=== PATIENT | male | born 1975 | race Two or more races ===

== ENCOUNTER 2021-09-16 09:08 | Outpatient (REF) | payer BC, SELFPAY ==
[2021-09-16 09:45] LABS: MANUAL DIFF FLAG NO
[2021-09-16 10:20] LABS: Basophils Percent Auto 0.8 % (0-2); Eosinophils Absolute Auto 0.1 X10*3/uL (0.0-0.4); Eosinophils Percent Auto 3.6 % (0-4); Hematocrit 46.1 % (42.0-52.0); Hemoglobin 15.6 g/dl (14.0-18.0); Imm Gran Abs Auto 0.01 X10*3/uL (0.00-0.03); Imm Gran Pct Auto 0.3 % (0.0-0.4); Lymphocytes Absolute Auto 1.3 X10*3/uL (1.2-4.9); Lymphocytes Percent Auto 36.2 % (20-40); Mean Corpuscular HGB Conc 33.8 g/dl (31.0-36.0); Mean Corpuscular Hemoglobin 28.8 pg (27.0-33.0); Mean Corpuscular Volume 85.2 fL (80.0-98.0); Mean Platelet Volume 11.9 fL (9.4-12.4); Monocytes Absolute Auto 0.3 X10*3/uL (0.1-1.2); Monocytes Percent Auto 7.5 % (2-11); Neutrophils Absolute Auto 1.9 x10*3/uL (2.0-8.3); Neutrophils Percent Auto 51.6 % (45-73); Platelet Count 160 X10*3/uL (160-400); Red Blood Count 5.41 X10*6/uL (4.60-5.80); Red Cell Distribution Width 12.2 % (11.0-16.0); White Blood Count 3.6 X10*3/uL (4.8-10.8)
[2021-09-16 10:40] LABS: Hemoglobin A1c % > 14.0 %
[2021-09-16 10:41] LABS: Alanine Aminotransferase 55 U/L (0-40); Albumin Level 4.4 g/dL (3.5-5.0); Alkaline Phosphatase 108 U/L (39-117); Anion Gap 14 (12-20); Aspartate Amino Transferase 28 U/L (5-37); Bilirubin Total 1.2 mg/dL (0.0-1.0); Blood Urea Nitrogen 11 mg/dL (9-16); Calcium 9.7 mg/dL (8.4-10.2); Carbon Dioxide 29 mmol/L (22-29); Chloride 101 mmol/L (96-108); Cholesterol 235 mg/dL; Estimated Glomerular Filt Rate > 60; HDL Cholesterol 37 mg/dL; LDL Cholesterol Calculated 152 mg/dl; Potassium 4.7 mmol/L (3.3-5.1); Sodium 139 mmol/L (135-145); Total Protein 7.4 g/dL (6.5-8.0); Triglycerides 231 mg/dL
[2021-09-16 10:53] LABS: Prostate Specific Antigen Scr 0.37 ng/mL (<0.05-4.0); TSH reflex Free T4 0.67 uIU/mL (0.32-4.0)
[2021-09-16 11:29] LABS: Glucose Fasting 390 mg/dL (60-99)
[2021-09-18 08:40] LABS: Folate 16.7 ng/mL (> or = 4.0); Vitamin B12 467 pg/mL (200-900)
[2021-09-21 19:26] LABS: Vitamin D 25-OH, D2 <4 ng/mL; Vitamin D 25-OH, D3 7 ng/mL; Vitamin D 25-OH, Total 7 ng/mL (30-100)
== END 2021-09-16 09:09 | disposition home or self-care (01) ==
LOC: HO.LAB 09:08
PROVIDERS: Visit Provider Nurse Practitioner Acute Care
DX: Z00.00 Encounter for general adult medical examination without abnormal findings (principal); Z12.9 Encounter for screening for malignant neoplasm, site unspecified
CPT/HCPCS: 36415; 80053; 80061; 82306; 82607; 82746; 83036; 84153; 84443; 85025

== ENCOUNTER → 2021-10-20 15:25 | Outpatient (BNVA) | payer BC, SELFPAY | PROVIDERS: Visit Provider Internal Medicine Endocrinology, Diabetes & Metabolism | DX: E11.9 Type 2 diabetes mellitus without complications (principal); Z79.84 Long term (current) use of oral hypoglycemic drugs | CPT/HCPCS: 82947 ==

== ENCOUNTER 2021-12-09 09:27 | Outpatient (REF) | payer BC, SELFPAY ==
[2021-12-09 11:29] LABS: Cholesterol 124 mg/dL; HDL Cholesterol 37 mg/dL; LDL Cholesterol Calculated 74 mg/dl; Triglycerides 66 mg/dL
[2021-12-09 11:35] LABS: Creatinine Urine 106.04 mg/dL; Microalbumin Urine < 5.0 mg/L
== END 2021-12-09 09:28 | disposition home or self-care (01) ==
LOC: HO.LAB 09:27
PROVIDERS: PCP Nurse Practitioner Acute Care; Visit Provider Internal Medicine Endocrinology, Diabetes & Metabolism
DX: E11.9 Type 2 diabetes mellitus without complications (principal)
CPT/HCPCS: 36415; 80061; 82043

== ENCOUNTER → 2022-01-23 15:19 | Outpatient (BNVA) | payer BC, SELFPAY | PROVIDERS: PCP Nurse Practitioner Acute Care; Visit Provider Internal Medicine Endocrinology, Diabetes & Metabolism | DX: E11.9 Type 2 diabetes mellitus without complications (principal) | CPT/HCPCS: 82947 ==

== ENCOUNTER → 2022-01-25 12:26 | Outpatient (BNVA) | payer BC, SELFPAY | PROVIDERS: PCP Nurse Practitioner Acute Care; Visit Provider Dietitian, Registered | DX: E11.9 Type 2 diabetes mellitus without complications (principal) | CPT/HCPCS: 97802 ==

== ENCOUNTER → 2022-03-22 13:24 | Outpatient (BNVA) | payer BC, SELFPAY | PROVIDERS: PCP Nurse Practitioner Family; Visit Provider Dietitian, Registered | DX: E11.9 Type 2 diabetes mellitus without complications (principal) | CPT/HCPCS: 97803 ==

== ENCOUNTER → 2022-04-26 14:59 | Outpatient (BNVA) | payer BC, SELFPAY | PROVIDERS: PCP Nurse Practitioner Family; Visit Provider Internal Medicine Endocrinology, Diabetes & Metabolism | DX: E11.9 Type 2 diabetes mellitus without complications (principal) | CPT/HCPCS: 82947; 83036 ==

== ENCOUNTER 2022-05-19 10:20 | Outpatient (REF) | payer BC, SELFPAY ==
[2022-05-19 10:54] LABS: Hematocrit 44.5 % (42.0-52.0); Hemoglobin 14.9 g/dl (14.0-18.0); Mean Corpuscular HGB Conc 33.5 g/dl (31.0-36.0); Mean Corpuscular Volume 86.7 fL (80.0-98.0); Platelet Count 146 X10*3/uL (160-400); Red Blood Count 5.13 X10*6/uL (4.60-5.80); Red Cell Distribution Width 12.1 % (11.0-16.0); White Blood Count 4.5 X10*3/uL (4.8-10.8)
[2022-05-19 11:59] LABS: Alanine Aminotransferase 28 U/L (0-40); Albumin Level 4.2 g/dL (3.5-5.0); Alkaline Phosphatase 62 U/L (39-117); Anion Gap 11 (12-20); Aspartate Amino Transferase 22 U/L (5-37); Bilirubin Total 0.8 mg/dL (0.0-1.0); Blood Urea Nitrogen 14 mg/dL (9-16); Calcium 9.2 mg/dL (8.4-10.2); Carbon Dioxide 28 mmol/L (22-29); Chloride 108 mmol/L (96-108); Cholesterol 128 mg/dL; Estimated Glomerular Filt Rate > 60; Glucose Random 147 mg/dL (60-115); HDL Cholesterol 32 mg/dL; LDL Cholesterol Calculated 84 mg/dl; Potassium 4.5 mmol/L (3.3-5.1); Sodium 142 mmol/L (135-145); Total Protein 6.9 g/dL (6.5-8.0); Triglycerides 61 mg/dL; Vitamin D 25-OH Total 19.9 ng/mL (>30)
== END 2022-05-19 10:21 | disposition home or self-care (01) ==
LOC: HO.LAB 10:20
PROVIDERS: PCP Nurse Practitioner Family; Visit Provider Nurse Practitioner Family
DX: E78.5 Hyperlipidemia, unspecified (principal); E11.9 Type 2 diabetes mellitus without complications; E55.9 Vitamin D deficiency, unspecified
CPT/HCPCS: 36415; 80053; 80061; 82306; 85027

== ENCOUNTER → 2022-07-31 15:04 | Outpatient (BNVA) | payer BC, SELFPAY | PROVIDERS: PCP Nurse Practitioner Family; Visit Provider Internal Medicine Endocrinology, Diabetes & Metabolism | DX: E11.9 Type 2 diabetes mellitus without complications (principal); Z79.84 Long term (current) use of oral hypoglycemic drugs | CPT/HCPCS: 82947; 83036 ==

== ENCOUNTER → 2022-08-08 13:59 | Outpatient (BNVA) | payer BC, SELFPAY | PROVIDERS: PCP Nurse Practitioner Family; Visit Provider Dietitian, Registered | DX: E11.9 Type 2 diabetes mellitus without complications (principal) | CPT/HCPCS: 97803 ==

== ENCOUNTER 2022-12-04 14:55 | Emergency (ER) | payer BC, SELFPAY ==
--- NOTE | ~2022-12-04 | US_ITS ---
EXAMINATION: US SCROTUM CLINICAL INFORMATION: Right testicle pain. COMPARISON: None available. TECHNIQUE: A sonogram of the scrotum was performed assessing das-scale appearance and color Doppler flow. Spectral Doppler analysis of the arterial and venous flow were performed in the testes bilaterally. FINDINGS: RIGHT: Right testicle measures 4.2 x 2.5 x 2.6 cm, volume 14 mL. No focal testicular parenchymal lesions are visualized. Spectral Doppler analysis of the arterial and venous flow is normal in the right testis. Right epididymal head is normal in size. 2 right epididymal head cysts largest measuring 3 x 4 x 3 mm. Right hydrocele. No right varicocele is seen. Right epididymal Doppler flow is normal. LEFT: Left testicle measures 3.9 x 2.2 x 2.9 cm, volume 12.8 mL. No focal testicular parenchymal lesions are visualized. Spectral Doppler analysis of the arterial and venous flow is normal in the left testis. Left epididymal head is normal in size. Small appendix epididymis. Small hydrocele. No left is seen. Left epididymal Doppler flow is normal. US/US scrotum doppler IMPRESSION: Normal-appearing testicles. Bilateral hydroceles, right greater than left. Small right epididymal head cysts.
--- NOTE | ~2022-12-04 | US_ITS ---
EXAMINATION: US SCROTUM CLINICAL INFORMATION: Right testicle pain. COMPARISON: None available. TECHNIQUE: A sonogram of the scrotum was performed assessing das-scale appearance and color Doppler flow. Spectral Doppler analysis of the arterial and venous flow were performed in the testes bilaterally. FINDINGS: RIGHT: Right testicle measures 4.2 x 2.5 x 2.6 cm, volume 14 mL. No focal testicular parenchymal lesions are visualized. Spectral Doppler analysis of the arterial and venous flow is normal in the right testis. Right epididymal head is normal in size. 2 right epididymal head cysts largest measuring 3 x 4 x 3 mm. Right hydrocele. No right varicocele is seen. Right epididymal Doppler flow is normal. LEFT: Left testicle measures 3.9 x 2.2 x 2.9 cm, volume 12.8 mL. No focal testicular parenchymal lesions are visualized. Spectral Doppler analysis of the arterial and venous flow is normal in the left testis. Left epididymal head is normal in size. Small appendix epididymis. Small hydrocele. No left is seen. Left epididymal Doppler flow is normal. US/US scrotum IMPRESSION: Normal-appearing testicles. Bilateral hydroceles, right greater than left. Small right epididymal head cysts.
--- NOTE | 2022-12-04 15:40 | ED.GENADULT ---
HPI - General Adult General Chief complaint: Urogenital-Male Stated complaint: Testicle pain Time Seen by Provider: 12/04/22 18:34 Source: patient Mode of arrival: ambulatory Limitations: no limitations History of Present Illness HPI narrative: 47 yo male with history of DM2, obesity, HLD who presents to the ER from Urgent Care for pain in the right testicular pain that is sharp and radiating into his abdomen. He states it started this morning, reports swelling, denies fevers, dysuria, n/v, and injury to the area. States that he took a step and felt pain. Pain 10/10 at the time. Has improved slightly. He states it is worse with standing. Denies concern for STI. No flank pain. MD complaint: right testicular pain Onset (ago): hour(s) Location: genitals Radiation: abdomen Severity: severe Severity scale (1-10): 10 Quality: aching Pain Consistency: colicky Relieving factors: none Exacerbating factors: other (standing) Associated symptoms: denies other symptoms Treatments prior to arrival: none Related Data Home Medications Medication Instructions Recorded Confirmed cholecalciferol (vitamin D3) 50 50 mcg PO DAILY 05/18/22 08/31/22 mcg (2,000 unit) tablet Previous Rx's Medication Instructions Recorded blood sugar diagnostic (FreeStyle #100 ea 09/18/21 Lite Strips) blood-glucose meter (FreeStyle #1 ea 09/18/21 Lite Meter kit) epinephrine 0.15 mg/0.3 mL 0.15 mg (0.3 mL) IM Q30M PRN 11/02/21 injection,auto-injector anaphylaxis #1 ea metformin 1,000 mg tablet 1,000 mg PO BID #180 tabs 11/02/21 lancets 28 gauge (FreeStyle #100 ea 12/25/21 Lancets) tirzepatide 5 mg/0.5 mL 5 mg (0.5 mL) subcut QWEEK #2 mL 04/26/22 subcutaneous pen injector (Rodger) atorvastatin 20 mg tablet 20 mg PO DAILY #30 tabs 10/30/22 naproxen 500 mg tablet 500 mg PO BID PRN pain #20 tabs 12/04/22 naproxen 500 mg tablet 500 mg PO BID PRN pain #20 tabs 12/04/22 Allergies Allergy/AdvReac Type Severity Reaction Status Date / Time No Known Allergies Allergy Verified 12/04/22 16:10 Review of Systems Review of Systems: Yes all other systems are reviewed and are negative [facility] Past Medical History Medical History Encounter to establish care History of severe allergic reaction Hyperlipidemia New onset type 2 diabetes mellitus Obesity (BMI 30-39.9) Polydipsia Polyuria Vitamin D deficiency Surgical History History of ankle surgery Family History Family History Other Family history of diabetes mellitus Social History Social History Household Members: Spouse and Family Household Members Other:: , 3 daughters, 1 grandaughter, step daughter boyriend Housing: House Alcohol intake: former Patient Tobacco Use Status: Former Tobacco user Quit Date: 2006 e-Cigarette/Vaping Use: Never Used Substance Use Type: Marijuana Advance Directives: No Advance Directives Information Provided: No service: No Current occupational status: employed Cognitive needs: No Hearing needs: No Vision needs: Yes (glasses) Physical Exam ED Vital Signs: Vital Signs - 24 hr 12/04/22 16:02 Temperature 97.7 F Pulse Rate 59 Respiratory Rate 18 Blood Pressure 141/72 H Pulse Oximetry 97 Oxygen Delivery Method Room Air BMI result Body Mass Index 35.4 Appearance: Alert. Oriented X3. No acute distress. HEENT: normal inspection CVS: Normal heart rate and rhythm. Pulses normal. Respiratory: No respiratory distress. Skin: Skin warm and dry. Normal skin color. Normal skin turgor. No rashes. : normal inspection, right testicle with posterior tenderness, no epididymal tenderness, no palpable masses. Extremities: normal inspection x4, no swelling Neuro: Oriented X 3. grossly normal, nonfocal Course Course Course Narrative: RME - 47 yo male with history of DM2, obesity, HLD who presents to the ER from Urgent Care for pain in the right testicular pain that is sharp and radiating into his abdomen. He states it started this morning, reports swelling, denies fevers, dysuria, n/v, and injury to the area. States that he took a step and felt pain. Pain 10/10. Plan: U/A, testicular U/S, CT/NG Medical Decision Making Medical Decision Making [facility] Narrative: 47 yo male presenting to the ER from urgent care for evaluation of right testicular pain and swelling that started today. No urinary symptoms. Minimal tenderness on exam, minimal swelling. US today showed normal flow, bilateral hydroceles, R>L. Small epididymal cysts on the right. No evidence of torsion, no UTI No CVA tenderness or RLQ tenderness on exam. UA without blood, count kidney stone. Will defer further imaging for now. Will start on empiric abx and NSAIDs. Stable for d/c home. Differential Diagnosis Differential Diagnoses: The differential diagnosis associated with the presentation includes testicular torsion, epididymitis, orchitis, UTI, stermatocele, hydrocele, kidney stones Lab Data [facility] Lab Attestation statement: I reviewed the patient's lab results. UA without infection or microscopic hematuria Labs: Lab Results 12/04/22 Range/Units 16:16 Urine Color Yellow Urine Appearance Clear Urine pH 5.5 (5.0-9.0) Ur Specific [place] 1.010 (1.005-1.025) Urine Protein Negative (Neg-Trace) mg/dL Urine Glucose (UA) Negative (Negative) mg/dL Urine Ketones Negative (Negative) mg/dL Urine Blood Negative (Negative) Urine Nitrite Negative (Negative) Ur Leukocyte Esterase Negative (Negative) Independent Interpretation I performed an independent interpretation of an: Ultrasound Interpretation: normal flow, agree with radiology read Radiology Impression Discussion of test interpretation with radiology: I have reviewed the radiologist's reading. Radiologist Impression: US/US scrotum doppler IMPRESSION: Normal-appearing testicles. Bilateral hydroceles, right greater than left. Small right epididymal head cysts. External Record Review External record reviewed: Office record Tests considered The following testing was considered but not selected: CT scan abd considered but not performed given normal UA Prescription Management I considered prescription management with: Pain Medication and Antibiotic Critical Care Time Critical Care Time Critical Care Time: No Discharge Plan Discharge Clinical Impression: Pain in right testicle Patient Disposition: Home, Self-Care Instructions: Hydrocele (ED), Testicle Pain (ED) Additional Instructions: Your ultrasound today showed benign fluid collections of the testicles. No evidence of acute infection Take the prescribed antibiotic to be on the safe side - complete the entire course Take the prescribed anti-inflammatory medication as needed for pain US/US scrotum doppler IMPRESSION: Normal-appearing testicles. Bilateral hydroceles, right greater than left. Small right epididymal head cysts. Prescriptions: New naproxen 500 mg tablet 500 mg PO BID PRN (Reason: pain) Qty: 20 0RF naproxen 500 mg tablet 500 mg PO BID PRN (Reason: pain) Qty: 20 0RF No Action (DME) FreeStyle Lite Strips Strip See Rx Instructions .Route Qty: 100 0RF Rx Instructions: Test once daily (DME) blood-glucose meter [FreeStyle Lite Meter] Kit See Rx Instructions .Route Qty: 1 0RF Rx Instructions: Test once daily (DME) lancets [FreeStyle Lancets] 28 gauge misc See Rx Instructions .Route Qty: 100 1RF Rx Instructions: Test once daily atorvastatin 20 mg tablet 20 mg PO DAILY Qty: 30 2RF metformin 1,000 mg tablet 1,000 mg PO BID Qty: 180 0RF epinephrine 0.15 mg/0.3 mL auto-injector 0.15 mg IM Q30M MDD one dose PRN (Reason: anaphylaxis) Qty: 1 1RF Rx Instructions: do not exceed 12 doses per 24 hrs cholecalciferol (vitamin D3) 50 mcg (2,000 unit) tablet 50 mcg PO DAILY Mounjaro 5 mg/0.5 mL pen injector 5 mg subcut QWEEK Qty: 2 5RF Referrals: Katherine Garcia FNP [Primary Care Provider] - Stand Alone Forms: Work/School Release Interventions: ED Discharge Assessment Last Done: 12/04/22 18:39 Discharge Date/Time: 12/04/22 18:40
[2022-12-04 16:02] VITALS: BP 141/72; PULSE 59; RESP 18; TEMP 36.5; O2SAT 97; BMI 35.4
[2022-12-04 16:28] LABS: Appearance Urine Clear; Color Urine Yellow; Glucose Urine UA Negative (Negative); Leukocyte Esterase Urine Negative (Negative); Nitrite Urine Negative (Negative); PH 5.5 (5.0-9.0); Urine Blood Negative (Negative); Urine Ketones Negative (Negative); Urine Protein Negative (Neg-Trace)
[2022-12-05 06:06] LABS: CT PCR NOT DETECTED (Not Detect.); NG PCR NOT DETECTED (Not Detect.)
== END 2022-12-04 18:40 | disposition home or self-care (01) ==
PROVIDERS: Physician Assistant; Emergency Provider Emergency Medicine; PCP Nurse Practitioner Family
DX: N50.811 Right testicular pain (principal); N43.3 Hydrocele, unspecified; N50.3 Cyst of epididymis; E11.9 Type 2 diabetes mellitus without complications; E78.5 Hyperlipidemia, unspecified; Z79.84 Long term (current) use of oral hypoglycemic drugs; Z79.899 Other long term (current) drug therapy
CPT/HCPCS: 0353U; 76870; 81003; 93975; 99282; 99284

== ENCOUNTER → 2022-12-06 15:00 | Outpatient (BNVA) | payer BC, SELFPAY | PROVIDERS: PCP Nurse Practitioner Family; Visit Provider Physician Assistant ==

== ENCOUNTER 2023-01-29 15:00 | Outpatient (AMB) | payer BC, SELFPAY ==
--- NOTE | 2023-01-29 15:02 | MHC.OFFVIS ---
Intake Vital Signs 01/29/23 15:06 Height 5 ft 8 in Weight 240 lb 11.916 oz BMI 36.6 BP 116/86 Blood Pressure Location Rt brachial Position Sitting Pulse 87 Pulse Source Pulse Oximeter Intake Visit Reasons: f/u Type 2 DM Intake Note: Patient present today to follow up on Type 2 Diabetes Mellitus. Last Diabetic Eye exam: 2021 Last Podiatry Visit: Does not see a cooperative extension agent Random Glucose: 116mg/dl HgA1C: DUE Identity Management Consultant Required: No Accompanied by: Self / Same As Patient Allergies No Known Allergies Allergy (Verified 12/06/22 15:13) Medication List - Last Reconciled 01/29/23 by Luis Armando Wilburn MD atorvastatin 20 mg PO DAILY bisacodyl (Dulcolax (bisacodyl)) 20 mg (4 x 5 mg) PO ONCE 1 day blood sugar diagnostic (FreeStyle Lite Strips) Test once daily blood-glucose meter (FreeStyle Lite Meter kit) Test once daily cholecalciferol (vitamin D3) 50 mcg PO DAILY epinephrine 0.15 mg (0.3 mL) IM Q30M PRN MDD one dose lancets (FreeStyle Lancets) Test once daily metformin 500 mg PO BID naproxen 500 mg PO BID PRN polyethylene glycol 3350 (Miralax) 238 grams PO ONCE 1 day tirzepatide (Mounjaro) 5 mg (0.5 mL) subcut QWEEK HPI HPI Comments History of Present Illness Details 47 YO M who is seen in consultation for T2DM at the request of PCP. Initially diagnosed with T2DM in 6 wks ago . Was initially started on treatment with metformin 1000 mg twice a day . Current regimen metformin 1000 mg BID. Mounjaro 5 mg Qwkly not taking . Unfortunately, patient did not bring glucometer or log book to follow-up visit Most recent A1C , 7.3 from prior14. Family history of T2DM in Paternal side Uncle, father . Has eyes checked yearly, last eye exam 2019 to be seen 12/06/21, denies retinopathy. Denies neuropathy, Denies nephropathy, Not on [LINDSAY/ARB]. Has HLD, Not on statin. Last LDL as measured on . Denies CAD. : Had diabetes education. [facility] Medical History Encounter to establish care History of severe allergic reaction Hyperlipidemia New onset type 2 diabetes mellitus Obesity (BMI 30-39.9) Polydipsia Polyuria Vitamin D deficiency Surgical History History of ankle surgery Family History Other Family history of diabetes mellitus Social History Household Members: Spouse and Family Household Members Other:: , 3 daughters, 1 grandaughter, step daughter boyriend Housing: House Alcohol intake: former Patient Tobacco Use Status: Former Tobacco user Quit Date: 2006 e-Cigarette/Vaping Use: Never Used Substance Use Type: Marijuana service: No Current occupational status: employed Cognitive needs: No Hearing needs: No Vision needs: Yes (glasses) Physical Exam Vital Signs: Last Vital Signs Pulse 87 01/29/23 15:06 BP 116/86 01/29/23 15:06 BMI result Body Mass Index 36.6 Absence of Cushingoid features. Absence of acromegalic features. Neck exam reveals nl size thyroid about 15 gms. No thyroid nodules palpable. No carotid bruits present. Lungs CTA. Heart S1 S2, Reg R/R. No M/R/ G. Skin exam reveals absence of vitiligo or acanthosis nigricans. Abdominal exam reveals Soft NT/ND with NA BS. No organomegaly present. Neck Other: . Extrem Other: Visual exam of foot performed. No ulcerations or open lesions. No onchomycosis, no callouses.Pulses 2 + distally Sensation intact to monofilament exam. Vibratory sensation sensed is intact with 128 Hz tuning fork Results AMB Hemoglobin A1c AMB Hemoglobin A1c 6.2 % Last Edit by CHARLES Hearn on 01/29/23 15:23 Results Reviewed Results Reviewed: 01/29/23 15:12 Glucose, Whole Blood Routine Laboratory Last Values Glucose (Clinic) 116 mg/dL (60-115) H 01/29/23 15:12 Hgb A1c (Clinic) 6.2 % (4.0-6.0) H 01/29/23 15:14 Assessment & Plan Assessment & Plan (1) New onset type 2 diabetes mellitus: Code(s): E11.9 - Type 2 diabetes mellitus without complications Plan: This is a 47-year-old male with a history of type 2 diabetes being treated with metformin with excellent glycemic control with no known microvascular or macrovascular complications Plan is to continue current treatment . If patient has difficulty tolerating the 5 mg dose of Mounjaro , dose can be reduced to 2.5 mg. At this point, patient can follow up with primary care provider and return to endocrinology of A1c deteriorates Orders: Orders AMB Hemoglobin A1c 01/29/23 E11.9 - Type 2 diabetes mellitus without complications Medications: Refilled tirzepatide (Mounjaro) 5 mg (0.5 mL) subcut QWEEK 2 mL 5RF Coding Level of Care Code Est Pt Level 4 (67857) Diagnoses New onset type 2 diabetes mellitus E11.9
[2023-01-29 15:06] VITALS: BP 116/86; PULSE 87; BMI 36.6
[2023-01-29 15:15] LABS: Glucose, Whole Blood 116 mg/dL (60-115)
== END 2023-01-29 15:44 | disposition home or self-care (01) ==
PROVIDERS: PCP Nurse Practitioner Family; Visit Provider Internal Medicine Endocrinology, Diabetes & Metabolism
DX: E11.9 Type 2 diabetes mellitus without complications (principal)
CPT/HCPCS: 99214

== ENCOUNTER → 2023-01-29 15:00 | Outpatient (BNVA) | payer BC, SELFPAY | PROVIDERS: Visit Provider Internal Medicine Endocrinology, Diabetes & Metabolism | DX: E11.9 Type 2 diabetes mellitus without complications (principal) | CPT/HCPCS: 82947; 83036 ==

== ENCOUNTER 2023-04-18 12:27 | Outpatient (AMB) | payer BC, SELFPAY ==
--- NOTE | 2023-04-18 12:38 | MHC.OFFVIS ---
Intake Vital Signs 04/18/23 12:41 Height 5 ft 8 in Weight 234 lb BMI 35.6 BP 103/57 L Blood Pressure Location Lt brachial Position Sitting Pulse 67 Intake Visit Reasons: would like to discuss cologaurd Intake Note: Patient to discuss Cologuard test. Patient denies any GI issues. Licensed Direct Entry Midwife Required: No Accompanied by: Self / Same As Patient Allergies No Known Allergies Allergy (Verified 04/18/23 12:36) HPI HPI Comments History of Present Illness Details 48-year-old male 30 minutes back in November of for colon screening consult He has no family hx- GI cancers- He has no issues Normal bowels Appetite is good 6 siblings-recently met- extended chat-very happy about No GI or general complete [facility] Medical History Encounter to establish care History of severe allergic reaction Hyperlipidemia New onset type 2 diabetes mellitus Obesity (BMI 30-39.9) Polydipsia Polyuria Vitamin D deficiency Surgical History History of ankle surgery Family History Other Family history of diabetes mellitus Social History Household Members: Spouse and Family Household Members Other:: , 3 daughters, 1 grandaughter, step daughter boyriend Housing: House Alcohol intake: former Patient Tobacco Use Status: Former Tobacco user Quit Date: 2006 e-Cigarette/Vaping Use: Never Used Substance Use Type: Marijuana service: No Current occupational status: employed Cognitive needs: No Hearing needs: No Vision needs: Yes (glasses) Review of Systems Const All systems reviewed & are unremarkable except as noted in HPI and below Card Denies chest pain and Denies dyspnea Resp Denies dyspnea GI Denies abdominal pain, Denies hematochezia, Denies constipation, Denies heartburn, Denies nausea and Denies vomiting Physical Exam Vital Signs: Last Vital Signs Pulse 67 04/18/23 12:41 BP 103/57 L 04/18/23 12:41 BMI result Body Mass Index 35.6 Const General: cooperative, healthy appearing, comfortable and no acute distress Orientation/consciousness: patient oriented x3 Limitations: no limitations Eyes Sclerae: sclerae normal Resp Effort & Inspection: normal respiratory effort and able to speak in complete sentences Skin General skin exam: no rashes or lesions noted Neuro General: patient oriented x3 Extrem General: Yes full ROM Psych Appearance: grossly normal and well kempt Mental Status: mental status grossly normal Speech and movement: Normal speech and movement present and Clear speech present Affect: normal affect Attitude: cooperative Thought content: Normal thought content present Insight: Good insight present (Psych) Judgement: Good judgement present (Psych) Assessment & Plan Assessment & Plan (1) Screening for colon cancer: Comment: Seen initially for colonoscopy consult however returns to discuss alternatives such as Cologuard Approximate 13% false-positive, however any positive would recommend standard colonoscopy Code(s): Z12.11 - Encounter for screening for malignant neoplasm of colon Plan cologuard Patient Instructions: Very pleasant, good spirit 48-year-old male seen initially for screening colonoscopy however referred to discuss alternatives. Cologuard discussed aware 13% false positives any positive result recommend standard colonoscopy. Request for test will be submitted to insurance for authorization After sample submitted he will call the office approximately 2 weeks for results Coding Level of Care Code Est Pt Level 3 (46796) Diagnoses Screening for colon cancer Z12.11 Time Spent (min) 30
[2023-04-18 12:41] VITALS: BP 103/57; PULSE 67; BMI 35.6
== END 2023-04-18 13:55 | disposition home or self-care (01) ==
PROVIDERS: PCP Nurse Practitioner Family; Visit Provider Physician Assistant
DX: R19.5 Other fecal abnormalities (principal)
CPT/HCPCS: 99213

== ENCOUNTER → 2023-04-18 12:27 | Outpatient (BNVA) | payer BC, SELFPAY | PROVIDERS: PCP Nurse Practitioner Family; Visit Provider Physician Assistant ==

== ENCOUNTER 2023-06-03 13:04 | Outpatient (AMB) | payer BC, SELFPAY ==
[2023-06-03 13:11] VITALS: BMI 35.6
--- NOTE | 2023-06-03 13:11 | MHC.AMNUTRGE ---
Intake VS Expanded 06/03/23 13:11 06/03/23 13:34 Height 5 ft 8 in 5 ft 8 in Weight 233 lb 14.567 oz 234 lb BMI 35.6 35.6 Intake Visit Reasons: DM Allergies No Known Allergies Allergy (Verified 04/18/23 12:36) HPI Nutrition Presentation Details Pt presents for MNT for T2DM Pt reports doing well, working on reducing portion sizes of starches and empty calorie foods. food frequency Including fish 0-1/wk fruits: 1-2/d vegetables : 1-2 servings , 2-3 times/wk fluids: water, milk, diet sodas physical activity: none additional to that at work - contemplating increasing KNM-Bibxjej-Gw.Jeor Equation Height 5 ft 8 in Weight 234 lb Resting Metabolic Rate 1908.68 Calculated Activity Level Mild Activity Calories Needed to Maintain Weight 2624.44 Most Recent Diabetes Results: No Data to Display [facility] Medical History Encounter to establish care History of severe allergic reaction Hyperlipidemia New onset type 2 diabetes mellitus Obesity (BMI 30-39.9) Polydipsia Polyuria Vitamin D deficiency Surgical History History of ankle surgery Family History Other Family history of diabetes mellitus Social History Household Members: Spouse and Family Household Members Other:: , 3 daughters, 1 grandaughter, step daughter boyriend Housing: House Alcohol intake: former Patient Tobacco Use Status: Former Tobacco user Quit Date: 2006 e-Cigarette/Vaping Use: Never Used Substance Use Type: Marijuana service: No Current occupational status: employed Cognitive needs: No Hearing needs: No Vision needs: Yes (glasses) Assessment & Plan Assessment & Plan (1) New onset type 2 diabetes mellitus: Code(s): E11.9 - Type 2 diabetes mellitus without complications Plan: wt: 106 kg Est kcal needs as per MSJ: 2600 (40% carb, 30% protein/fat) Est fluid needs as per 30 ml/d: 3180 Est prot per day as per 1 g/kg bw: 106 g Recommend fiber intake : 8-10 g per day and gradually increase to 25-28 g per day for women and 35-38 g for men or as tolerated Recommend sodium intake per day: less than 2000 mg Educated patient on: ( R = reviewed V = verbalizes understanding N/R = needs review N/A = not applicable Food sources of carbohydrate, adequate serving sizes and its role in various health conditions: R Differences between complex carbohydrates a simple carbohydrates, role of fiber in diet: R Differences between types of fats and role in diet (mono on saturated fat fatty acids, saturated fatty acids, trans fats): NR Food sources of sodium in salt and healthy modifications for heart health in kidney health: NR Vitamins and minerals: R V Healthy plate method concept: R V Physical activity: Benefits a precaution: R Hypoglycemia protocol (rule of 15): R Patient Instructions: Increase physical activity 30 minutes, 3 times/wk weight loss goal 10 lbs less by next follow up Coding Level of Care Code Nutr Indiv Subseq (20158) Diagnoses New onset type 2 diabetes mellitus E11.9 Time Spent (min) 30
[2023-06-12 13:33] VITALS: BMI 35.6
== END 2023-06-03 13:51 | disposition home or self-care (01) ==
PROVIDERS: PCP Nurse Practitioner Family; Visit Provider Dietitian, Registered
DX: E11.9 Type 2 diabetes mellitus without complications (principal)

== ENCOUNTER → 2023-06-03 13:04 | Outpatient (BNVA) | payer BC, SELFPAY | PROVIDERS: PCP Nurse Practitioner Family; Visit Provider Dietitian, Registered | DX: E11.9 Type 2 diabetes mellitus without complications (principal); Z71.3 Dietary counseling and surveillance | CPT/HCPCS: 97803 ==

== ENCOUNTER 2023-09-04 14:55 | Outpatient (AMB) | payer BC, SELFPAY ==
--- NOTE | 2023-09-04 15:00 | MHC.PC.OV ---
Vital Signs 09/04/23 15:01 Height 5 ft 8 in Weight 227 lb 8 oz BMI 34.6 BP 120/60 Blood Pressure Location Lt brachial Position Sitting Pulse 63 Pulse Source Pulse Oximeter Pulse Oximetry (%) 97 Oxygen Delivery Method Room Air Intake Visit Reasons: PE Intake Note: Patient is here today for a physical. Senior Lead Software Engineer Required: No Drywall Finisher Foreman: Not Required per policy Accompanied by: Self / Same As Patient Allergies metformin Allergy (Intermediate, Verified 09/06/23 07:12) Diarrhea Medication List - Last Reconciled 09/06/23 by Dre Oscar MD atorvastatin 20 mg PO DAILY bisacodyl (Dulcolax (bisacodyl)) 20 mg (4 x 5 mg) PO ONCE 1 day blood sugar diagnostic (FreeStyle Lite Strips) Test once daily blood-glucose meter (FreeStyle Lite Meter kit) Test once daily cholecalciferol (vitamin D3) 50 mcg PO DAILY epinephrine 0.15 mg (0.3 mL) IM Q30M PRN MDD one dose lancets (FreeStyle Lancets) Test once daily naproxen 500 mg PO BID PRN polyethylene glycol 3350 (Miralax) 238 grams PO ONCE 1 day tirzepatide (Mounjaro) 2.5 mg (0.5 mL) subcut QWEEK Tobacco use date assessed: 09/04/23 Dental Screening Dental Screen Date: 09/04/23 Did you have a dental visit in the last 12 months?: No Did you have a dental problem in the last 6 months where you did not have access to dental care?: No Was dental information given to patient?: No HPI PE HPI Details 48-year-old male presents to the office requesting a physical. I will be taking over his care as his primary care provider has left the practice. Patient has history of diabetes and it is controlled with injectable Mounjaro. [facility] Medical History History of severe allergic reaction Obesity (BMI 30-39.9) Vitamin D deficiency Hyperlipidemia New onset type 2 diabetes mellitus Polyuria Polydipsia Encounter to establish care Surgical History History of ankle surgery Family History Other Family history of diabetes mellitus Social History Household Members: Spouse and Family Household Members Other:: , 3 daughters, 1 grandaughter, step daughter boyrimarek Housing: House Alcohol intake: former Patient Tobacco Use Status: Former Tobacco user Quit Date: 2006 e-Cigarette/Vaping Use: Never Used Second Hand Smoke Exposure: Yes Substance Use Type: Marijuana service: No Current occupational status: employed Cognitive needs: No Hearing needs: No Vision needs: Yes (glasses) Questionnaire PHQ-9 Over the last 2 weeks, how often have you been bothered by any of the following problems? 1. Little interest or pleasure in doing things: not at all 2. Feeling down, depressed, or hopeless: not at all 3. Trouble falling or staying asleep, or sleeping too much: not at all 4. Feeling tired or having little energy: not at all 5. Poor appetite or overeating: not at all 6. Feeling bad about yourself - or that you are a failure or have let yourself or your family down: not at all 7. Trouble concentrating on things, such as reading the newspaper or watching television: not at all 8. Moving or speaking so slowly that other people could have noticed. Or the opposite - being so fidgety or restless that you have been moving around a lot more than usual: not at all 9. Thoughts that you would be better off or of hurting yourself in some way: not at all Total score: 0 Depression Screening Interpretation: Negative Depression Screening Done: Yes Source: Developed by Drs. Luis Armando White, Stefanie Leon, Toñito Bruno and colleagues, with an educational leeroy from [employer]. Thrive Questionnaire Date Thrive assessed: 09/04/23 I am a: Patient What is your living situation today?: I have a steady place to live Within the past 12 months, did the food you bought not last and you didn't have the money to get more?: Never true Within the past 12 months, did you worry whether your food would run out before you got money to buy more?: Never true Do you have trouble paying for medicines?: No Do you have trouble getting transportation to medical appointments?: No Do you have trouble paying your heating and electricity bill?: No Do you have trouble taking care of your child, family member or friend?: No Do you have trouble with day-to-day activities such as bathing, preparing meals, shopping, managing finances, etc.?: No Are you currently unemployed and looking for a job?: No Are you interested in more education?: No Currently or been in a relationship where the following occur: no concerns reported THRIVE Score: 0 AUDIT C Alcohol Use Questionnaire (AUDIT-C) 1. How often do you have a drink containing alcohol?: Never Total Score: 0 ANNIKA-7 AMB Questionnaire ANNIKA-7 Date ANNIKA - 7 assessed: 09/04/23 Feeling nervous, anxious, or on edge: 0 = Not at all Not being able to stop or control worryin = Not at all Worrying too much about different things: 0 = Not at all Trouble relaxin = Not at all Being so restless that it is hard to sit still: 0 = Not at all Becoming easily annoyed or irritable: 0 = Not at all Feeling afraid as if something awful might happen: 0 = Not at all Total ANNIKA-7 score (0-4 normal; 5-9 mild; 10-14 moderate; 15-21 severe): 0 Source: Developed by Drs. Luis Armando White, Stefanie Leon, Toñito Bruno and colleagues, with an educational leeroy from [employer]. Physical exam (Primary Care) Vital Signs: Last Vital Signs Pulse 63 09/04/23 15:01 BP 120/60 09/04/23 15:01 Pulse Ox 97 09/04/23 15:01 Oxygen Delivery Method Room Air 09/04/23 15:01 BMI result Body Mass Index 34.6 Tobacco/Smoking Status: Tobacco use Status Tobacco use date assessed 09/04/23 09/04/23 15:11 Patient Tobacco Use Status Former Tobacco user 09/04/23 15:11 e-Cigarette/Vaping Use Never Used 09/04/23 15:11 PHQ-9: PHQ-9 Score PHQ-9: Total score 0 09/04/23 15:11 Depression Screening Interpretation: Negative Thrive Assessment: Date of Thrive Assessment Date Thrive assessed 09/04/23 09/04/23 15:11 Currently or been in a relationship where the following occur: no concerns reported Const General: cooperative and healthy appearing Nutritional Appearance: well nourished Orientation/consciousness: patient oriented x3 Limitations: no limitations HENMT Head: Yes normal to inspection Eyes General: appearance normal, both eyes and all related structures Neck Neck: Yes normal visual inspection Chest Chest palpation & inspection: normal palpation of entire chest wall Resp Effort & Inspection: normal respiratory effort Neuro General: patient oriented x3 Results AMB Hemoglobin A1c AMB Hemoglobin A1c 6.2 % Last Edit by CHARLES Mcwilliams on 09/04/23 15:12 Results Reviewed Results Reviewed: Laboratory Last Values Hgb A1c (Clinic) 6.2 % (4.0-6.0) H 09/04/23 15:00 Assessment and Plan Assessment & Plan (1) New onset type 2 diabetes mellitus: Code(s): E11.9 - Type 2 diabetes mellitus without complications (2) Annual physical exam: Code(s): Z00.00 - Encounter for general adult medical examination without abnormal findings Plan: Blood work has been ordered. Continue current medications. Orders: Orders Lipid Panel 09/04/23 E11.9 - Type 2 diabetes mellitus without complications Basic Metabolic Panel 09/04/23 E11.9 - Type 2 diabetes mellitus without complications UA and rflx microscopic 09/04/23 E11.9 - Type 2 diabetes mellitus without complications AMB Hemoglobin A1c 09/04/23 E11.9 - Type 2 diabetes mellitus without complications Liver Panel 09/04/23 E11.9 - Type 2 diabetes mellitus without complications Complete Blood Count no Diff 09/04/23 E11.9 - Type 2 diabetes mellitus without complications Thyroid Stimulating Hormone 09/04/23 E11.9 - Type 2 diabetes mellitus without complications Microalbumin, Random (w Creat) 09/04/23 E11.9 - Type 2 diabetes mellitus without complications Coding Level of Care Code Est Pt Prev Care 40-64y(35853) Diagnoses New onset type 2 diabetes mellitus E11.9 Annual physical exam Z00.00
[2023-09-04 15:01] VITALS: BP 120/60; PULSE 63; O2SAT 97; BMI 34.6
== END 2023-09-04 15:53 | disposition home or self-care (01) ==
PROVIDERS: PCP Internal Medicine; Visit Provider Internal Medicine
DX: E11.9 Type 2 diabetes mellitus without complications (principal)
CPT/HCPCS: 83036; 99396

== ENCOUNTER 2023-10-12 08:08 | Outpatient (REF) | payer BC, SELFPAY ==
[2023-10-12 08:56] LABS: Hematocrit 45.8 % (42.0-52.0); Hemoglobin 15.7 g/dl (14.0-18.0); Mean Corpuscular HGB Conc 34.3 g/dl (31.0-36.0); Mean Corpuscular Hemoglobin 29.8 pg (27.0-33.0); Mean Corpuscular Volume 87.1 fL (80.0-98.0); Mean Platelet Volume 10.8 fL (9.4-12.4); Platelet Count 133 X10*3/uL (160-400); Red Blood Count 5.26 X10*6/uL (4.60-5.80); Red Cell Distribution Width 12.3 % (11.0-16.0); White Blood Count 4.3 X10*3/uL (4.8-10.8)
[2023-10-12 09:39] LABS: Alanine Aminotransferase 21 U/L (0-40); Albumin Level 4.4 g/dL (3.5-5.0); Alkaline Phosphatase 55 U/L (39-117); Anion Gap 10 (12-20); Aspartate Amino Transferase 20 U/L (5-37); Bilirubin Direct 0.3 mg/dL (0.0-0.5); Bilirubin Total 0.9 mg/dL (0.0-1.0); Blood Urea Nitrogen 16 mg/dL (9-16); Calcium 9.5 mg/dL (8.4-10.2); Carbon Dioxide 30 mmol/L (22-29); Chloride 105 mmol/L (96-108); Estimated Glomerular Filt Rate > 60; Glucose Random 125 mg/dL (60-115); Potassium 4.8 mmol/L (3.3-5.1); Sodium 140 mmol/L (135-145); Total Protein 7.2 g/dL (6.5-8.0)
[2023-10-12 09:55] LABS: Thyroid Stimulating Hormone 0.79 uIU/mL (0.32-4.0)
== END 2023-10-12 08:09 | disposition home or self-care (01) ==
LOC: HO.LAB 08:08
PROVIDERS: PCP Internal Medicine; Visit Provider Internal Medicine
DX: E11.9 Type 2 diabetes mellitus without complications (principal)
CPT/HCPCS: 36415; 80048; 80076; 84443; 85027

== ENCOUNTER 2023-11-05 15:38 | Outpatient (AMB) | payer BC, SELFPAY ==
--- NOTE | 2023-11-05 15:40 | MHC.PC.OV ---
Vital Signs 11/05/23 15:41 Height 5 ft 8 in Weight 220 lb 4 oz BMI 33.5 BP 100/60 Blood Pressure Location Rt brachial Position Sitting Pulse 65 Pulse Source Pulse Oximeter Pulse Oximetry (%) 95 Oxygen Delivery Method Room Air Intake Visit Reasons: stomach issues wants forms completed Intake Note: Patient is here to follow up on stomach issues. Green Marketing Specialist Required: No Agriculture Professor: Not Required per policy Accompanied by: Self / Same As Patient Allergies metformin Allergy (Intermediate, Verified 11/05/23 16:37) Diarrhea Medication List - Last Reconciled 11/05/23 by Dre Oscar MD atorvastatin 20 mg PO DAILY blood sugar diagnostic (FreeStyle Lite Strips) Test once daily blood-glucose meter (FreeStyle Lite Meter kit) Test once daily cholecalciferol (vitamin D3) 50 mcg PO DAILY epinephrine 0.15 mg (0.3 mL) IM Q30M PRN MDD one dose lancets (FreeStyle Lancets) Test once daily tirzepatide (Mounjaro) 2.5 mg (0.5 mL) subcut QWEEK Tobacco use date assessed: 11/05/23 Dental Screening Dental Screen Date: 09/04/23 HPI stomach issues wants forms completed HPI Details 48 yr old male presents to the office to discuss his medical condition. Patient reports he is experiencing anxiety symptoms. 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 Tough job conditions. Good interpersonal relations with . Compliant with medications [facility] Medical History History of severe allergic reaction Obesity (BMI 30-39.9) Vitamin D deficiency Hyperlipidemia New onset type 2 diabetes mellitus Polyuria Polydipsia Encounter to establish care Surgical History History of ankle surgery Family History Other Family history of diabetes mellitus Social History Household Members: Spouse and Family Household Members Other:: , 3 daughters, 1 grandaughter, step daughter boyriend Housing: House Alcohol intake: former Patient Tobacco Use Status: Former Tobacco user Quit Date: 2006 e-Cigarette/Vaping Use: Never Used Second Hand Smoke Exposure: Yes Substance Use Type: Marijuana service: No Current occupational status: employed Cognitive needs: No Hearing needs: No Vision needs: Yes (glasses) Questionnaire Thrive Questionnaire Date Thrive assessed: 09/04/23 ANNIKA-7 AMB Questionnaire ANNIKA-7 Date ANNIKA - 7 assessed: 09/04/23 Source: Developed by Drs. Luis Armando White, Stefanie Leon, Toñito Bruno and colleagues, with an educational leeroy from [employer]. Physical exam (Primary Care) Vital Signs: Last Vital Signs Pulse 65 11/05/23 15:41 BP 100/60 11/05/23 15:41 Pulse Ox 95 11/05/23 15:41 Oxygen Delivery Method Room Air 11/05/23 15:41 BMI result Body Mass Index 33.5 Tobacco/Smoking Status: Tobacco use Status Tobacco use date assessed 11/05/23 11/05/23 15:56 Patient Tobacco Use Status Former Tobacco user 11/05/23 15:56 e-Cigarette/Vaping Use Never Used 11/05/23 15:56 Thrive Assessment: Date of Thrive Assessment Date Thrive assessed 09/04/23 11/05/23 15:56 Const General: cooperative and healthy appearing Nutritional Appearance: well nourished Orientation/consciousness: patient oriented x3 Limitations: no limitations HENMT Head: Yes normal to inspection Eyes General: appearance normal, both eyes and all related structures Neck Neck: Yes normal visual inspection Chest Chest palpation & inspection: normal palpation of entire chest wall Resp Effort & Inspection: normal respiratory effort Neuro General: patient oriented x3 Assessment and Plan Assessment & Plan (1) Generalized anxiety disorder: Code(s): F41.1 - Generalized anxiety disorder Plan: Agreed to fill FMLA form. No medications are needed currently. Patient was offered therapy, he will let me know his decision. Coding Level of Care Code Est Pt Level 3 (41643) Diagnoses Generalized anxiety disorder F41.1
[2023-11-05 15:41] VITALS: BP 100/60; PULSE 65; O2SAT 95; BMI 33.5
== END 2023-11-05 16:42 | disposition home or self-care (01) ==
PROVIDERS: PCP Internal Medicine; Visit Provider Internal Medicine
DX: F41.1 Generalized anxiety disorder (principal)
CPT/HCPCS: 99213

== ENCOUNTER 2023-11-12 14:27 | Outpatient (AMB) | payer BC, SELFPAY ==
[2023-11-12 14:30] VITALS: BMI 33.6
--- NOTE | 2023-11-12 14:30 | A.OFFVIS_ITS ---
VS Expanded 11/12/23 14:30 Height 5 ft 8 in Weight 220 lb 14.451 oz BMI 33.6 Intake Visit Reasons: T2DM/ CONFIRMED Allergies metformin Allergy (Intermediate, Verified 11/15/23 10:20) Diarrhea Nutrition Presentation Details: Pt presents for MNT f/u for T2DM Pt reports working on keeping physically active 3 times a week at least 30 minutes and working on diet modifications , getting family members involved. Pr reports feeling well, motivated, no concerns expressed at this time. BS Monitoring Most Recent Diabetes Results: Creatinine 0.87 mg/dL (0.5-1.4) 10/12/23 Blood Urea Nitrogen 16 mg/dL (9-16) 10/12/23 Sodium 140 mmol/L (135-145) 10/12/23 Potassium 4.8 mmol/L (3.3-5.1) 10/12/23 Chloride 105 mmol/L (96-108) 10/12/23 Carbon Dioxide 30 mmol/L (22-29) H 10/12/23 Calcium 9.5 mg/dL (8.4-10.2) 10/12/23 AST 20 U/L (5-37) 10/12/23 ALT 21 U/L (0-40) 10/12/23 Total Protein 7.2 g/dL (6.5-8.0) 10/12/23 Albumin 4.4 g/dL (3.5-5.0) 10/12/23 [facility] Medical History History of severe allergic reaction Obesity (BMI 30-39.9) Vitamin D deficiency Hyperlipidemia New onset type 2 diabetes mellitus Polyuria Polydipsia Encounter to establish care Surgical History History of ankle surgery Family History Other Family history of diabetes mellitus Social History Household Members: Spouse and Family Household Members Other:: , 3 daughters, 1 grandaughter, step daughter boyriend Housing: House Alcohol intake: former Patient Tobacco Use Status: Former Tobacco user Quit Date: 2006 e-Cigarette/Vaping Use: Never Used Second Hand Smoke Exposure: Yes Substance Use Type: Marijuana service: No Current occupational status: employed Cognitive needs: No Hearing needs: No Vision needs: Yes (glasses) Assessment & Plan Assessment & Plan (1) New onset type 2 diabetes mellitus: Code(s): E11.9 - Type 2 diabetes mellitus without complications Category: Medical Plan: wt: 106 kg , 100kg ( 10/2023) Est kcal needs as per MSJ: 2600 (40% carb, 30% protein/fat) Est fluid needs as per 30 ml/d: 3180 Est prot per day as per 1 g/kg bw: 106 g Recommend fiber intake : 8-10 g per day and gradually increase to 25-28 g per day for women and 35-38 g for men or as tolerated Recommend sodium intake per day: less than 2000 mg Educated patient on: ( R = reviewed V = verbalizes understanding N/R = needs review N/A = not applicable * Food sources of carbohydrate, adequate serving sizes and its role in various health conditions: R * Differences between complex carbohydrates a simple carbohydrates, role of fiber in diet: R * Differences between types of fats and role in diet (mono on saturated fat fatty acids, saturated fatty acids, trans fats): NR * Food sources of sodium in salt and healthy modifications for heart health in kidney health: R * Vitamins and minerals: R V * Healthy plate method concept: R V * Physical activity: Benefits a precaution: R * Hypoglycemia protocol (rule of 15): R * Patient Instructions: Continue working on following healthy plate method Keep hydrated drinking water with meals be mindful of salt in diet (pastries/ seasoning salts) work on reducing salt intake , choose fruit in place of pastries at least 2 times a day Coding Level of Care Code Nutr Indiv Subseq (97929) Diagnoses New onset type 2 diabetes mellitus E11.9 Time Spent (min) 30
== END 2023-11-12 15:01 | disposition home or self-care (01) ==
PROVIDERS: PCP Nurse Practitioner Family; Visit Provider Dietitian, Registered
DX: E11.9 Type 2 diabetes mellitus without complications (principal)

== ENCOUNTER → 2023-11-12 14:27 | Outpatient (BNVA) | payer BC, SELFPAY | PROVIDERS: PCP Nurse Practitioner Family; Visit Provider Dietitian, Registered | DX: E11.9 Type 2 diabetes mellitus without complications (principal); Z71.3 Dietary counseling and surveillance | CPT/HCPCS: 97803 ==

== ENCOUNTER 2023-11-13 10:09 | Outpatient (AMB) | payer BC, SELFPAY ==
--- NOTE | 2023-11-13 10:13 | MHC.PC.OV ---
Vital Signs 11/13/23 10:14 Height 5 ft 8 in Weight 221 lb 8 oz BMI 33.7 BP 110/66 Blood Pressure Location Lt brachial Position Sitting Pulse 65 Pulse Source Pulse Oximeter Pulse Oximetry (%) 95 Oxygen Delivery Method Room Air Intake Visit Reasons: throwing up, abdominal pain Intake Note: Patient is here to follow up on throwing up, chills, sweating and abdominal pain radiating down to groin area since 11/12/23. Drone Operator Required: No Raw Stock Machine Loader: Not Required per policy Accompanied by: Self / Same As Patient Allergies metformin Allergy (Intermediate, Verified 11/15/23 10:20) Diarrhea Tobacco use date assessed: 11/13/23 Dental Screening Dental Screen Date: 09/04/23 HPI throwing up, abdominal pain HPI Details 48 yr old male presents for a sick visit. Woke up a few days ago with diarrhea and stomach discomfirt. His had similiar symptoms. Could not go to work and needs a note. Blood sugars are in range. Symptoms are improving and he now only has stomach discomfirt. [facility] Medical History History of severe allergic reaction Obesity (BMI 30-39.9) Vitamin D deficiency Hyperlipidemia New onset type 2 diabetes mellitus Polyuria Polydipsia Encounter to establish care Surgical History History of ankle surgery Family History Other Family history of diabetes mellitus Social History Household Members: Spouse and Family Household Members Other:: , 3 daughters, 1 grandaughter, step daughter boyriend Housing: House Alcohol intake: former Patient Tobacco Use Status: Former Tobacco user Quit Date: 2006 e-Cigarette/Vaping Use: Never Used Second Hand Smoke Exposure: Yes Substance Use Type: Marijuana service: No Current occupational status: employed Cognitive needs: No Hearing needs: No Vision needs: Yes (glasses) Questionnaire Thrive Questionnaire Date Thrive assessed: 09/04/23 ANNIKA-7 AMB Questionnaire ANNIKA-7 Date ANNIKA - 7 assessed: 09/04/23 Source: Developed by Drs. Luis Armando White, Stefanie Leon, Toñito Bruno and colleagues, with an educational leeroy from [employer]. Physical exam (Primary Care) Vital Signs: Last Vital Signs Pulse 65 11/13/23 10:14 BP 110/66 11/13/23 10:14 Pulse Ox 95 11/13/23 10:14 Oxygen Delivery Method Room Air 11/13/23 10:14 BMI result Body Mass Index 33.7 Tobacco/Smoking Status: Tobacco use Status Tobacco use date assessed 11/13/23 11/13/23 10:20 Patient Tobacco Use Status Former Tobacco user 11/13/23 10:20 e-Cigarette/Vaping Use Never Used 11/13/23 10:20 Thrive Assessment: Date of Thrive Assessment Date Thrive assessed 09/04/23 11/13/23 10:20 Const General: cooperative and healthy appearing Nutritional Appearance: well nourished Orientation/consciousness: patient oriented x3 Limitations: no limitations HENMT Head: Yes normal to inspection Eyes General: appearance normal, both eyes and all related structures Neck Neck: Yes normal visual inspection Chest Chest palpation & inspection: normal palpation of entire chest wall Resp Effort & Inspection: normal respiratory effort Neuro General: patient oriented x3 Assessment and Plan Assessment & Plan (1) Gastroenteritis: Code(s): K52.9 - Noninfective gastroenteritis and colitis, unspecified Plan: Self limiting illness. No medications needed. Coding Level of Care Code Est Pt Level 3 (33918) Diagnoses Gastroenteritis K52.9
[2023-11-13 10:14] VITALS: BP 110/66; PULSE 65; O2SAT 95; BMI 33.7
== END 2023-11-13 11:13 | disposition home or self-care (01) ==
PROVIDERS: PCP Nurse Practitioner Family; Visit Provider Internal Medicine
DX: K52.9 Noninfective gastroenteritis and colitis, unspecified (principal)
CPT/HCPCS: 99213

== ENCOUNTER 2024-01-15 14:27 | Outpatient (AMB) | payer BC, SELFPAY ==
--- NOTE | 2024-01-15 14:32 | MHC.PC.OV ---
Vital Signs 01/15/24 14:34 Height 5 ft 8 in Weight 218 lb 6 oz BMI 33.2 BP 110/70 Blood Pressure Location Lt brachial Position Sitting Pulse 78 Pulse Source Pulse Oximeter Pulse Oximetry (%) 97 Oxygen Delivery Method Room Air Intake Visit Reasons: anxiety, focus Intake Note: Patient is here to follow up on Anxiety, Focus and FMLA extension (forms dropped) Sourcing Internship Required: No Hospital Pharmacy Director: Not Required per policy Accompanied by: Self / Same As Patient Allergies metformin Allergy (Intermediate, Verified 01/15/24 15:04) Diarrhea Medication List - Last Reconciled 01/15/24 by Dre Oscar MD atorvastatin 20 mg PO DAILY blood sugar diagnostic (FreeStyle Lite Strips) Test once daily blood-glucose meter (FreeStyle Lite Meter kit) Test once daily cholecalciferol (vitamin D3) 50 mcg PO DAILY epinephrine 0.15 mg (0.3 mL) IM Q30M PRN MDD one dose lancets (FreeStyle Lancets) Test once daily tirzepatide (Mounjaro) 2.5 mg (0.5 mL) subcut QWEEK Tobacco use date assessed: 01/15/24 Dental Screening Dental Screen Date: 09/04/23 HPI anxiety, focus HPI Details 48-year-old male presents to the office for a sick visit. Patient requests and extension on his FMLA form. He has been out of work since the last office visit. He has to return to work tomorrow. Patient is requesting an extension for his intermittent leave. He reports that his symptoms of anxiety are continuing. In the last visit he had deferred seeing a psychiatrist or therapist. [facility] Medical History (Updated 01/15/24 @ 15:06 by Dre Oscar MD) Generalized anxiety disorder History of severe allergic reaction Obesity (BMI 30-39.9) Vitamin D deficiency Hyperlipidemia New onset type 2 diabetes mellitus Polyuria Polydipsia Encounter to establish care Surgical History History of ankle surgery Family History Other Family history of diabetes mellitus Social History Household Members: Spouse and Family Household Members Other:: , 3 daughters, 1 grandaughter, step daughter migue Housing: House Alcohol intake: former Patient Tobacco Use Status: Former Tobacco user e-Cigarette/Vaping Use: Never Used Second Hand Smoke Exposure: Yes Substance Use Type: Marijuana service: No Current occupational status: employed Cognitive needs: No Hearing needs: No Vision needs: Yes (glasses) Questionnaire Thrive Questionnaire Date Thrive assessed: 09/04/23 ANNIKA-7 AMB Questionnaire ANNIKA-7 Date ANNIKA - 7 assessed: 01/15/24 Feeling nervous, anxious, or on edge: 2 = More than half the days Not being able to stop or control worryin = Several days Worrying too much about different things: 1 = Several days Trouble relaxin = More than half the days Being so restless that it is hard to sit still: 1 = Several days Becoming easily annoyed or irritable: 1 = Several days Feeling afraid as if something awful might happen: 1 = Several days Total ANNIKA-7 score (0-4 normal; 5-9 mild; 10-14 moderate; 15-21 severe): 9 Source: Developed by Drs. Luis Armando White, Stefanie Leon, Toñito Bruno and colleagues, with an educational leeroy from [employer]. Physical exam (Primary Care) Vital Signs: Last Vital Signs Pulse 78 01/15/24 14:34 BP 110/70 01/15/24 14:34 Pulse Ox 97 01/15/24 14:34 Oxygen Delivery Method Room Air 01/15/24 14:34 BMI result Body Mass Index 33.2 Tobacco/Smoking Status: Tobacco use Status Tobacco use date assessed 01/15/24 01/15/24 14:36 Patient Tobacco Use Status Former Tobacco user 01/15/24 14:33 e-Cigarette/Vaping Use Never Used 01/15/24 14:33 Thrive Assessment: Date of Thrive Assessment Date Thrive assessed 09/04/23 01/15/24 14:33 Const General: cooperative and healthy appearing Nutritional Appearance: well nourished Orientation/consciousness: patient oriented x3 Limitations: no limitations HENMT Head: Yes normal to inspection Eyes General: appearance normal, both eyes and all related structures Neck Neck: Yes normal visual inspection Chest Chest palpation & inspection: normal palpation of entire chest wall Resp Effort & Inspection: normal respiratory effort Neuro General: patient oriented x3 Assessment and Plan Assessment & Plan (1) Generalized anxiety disorder: Code(s): F41.1 - Generalized anxiety disorder Plan: I insisted that patient should see a therapist. He believes that all his symptoms are work-related and due to the conditions at work. He has agreed to see a therapist. Intermittently form has been signed. Coding Level of Care Code Est Pt Level 3 (88871) Diagnoses Generalized anxiety disorder F41.1
[2024-01-15 14:34] VITALS: BP 110/70; PULSE 78; O2SAT 97; BMI 33.2
== END 2024-01-15 15:04 | disposition home or self-care (01) ==
PROVIDERS: PCP Internal Medicine; Visit Provider Internal Medicine
DX: F41.1 Generalized anxiety disorder (principal)
CPT/HCPCS: 99213

== ENCOUNTER 2024-02-12 15:45 | Outpatient (AMB) | payer BC, SELFPAY ==
--- NOTE | 2024-02-12 15:46 | A.OFFPC_ITS ---
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 Allergies metformin Allergy (Intermediate, Verified 02/18/24 10:56) Diarrhea Medication List - Last Reconciled 02/18/24 by Dre Oscar MD atorvastatin 20 mg PO DAILY blood sugar diagnostic (FreeStyle Lite Strips) Test once daily blood-glucose meter (FreeStyle Lite Meter kit) Test once daily cholecalciferol (vitamin D3) 50 mcg PO DAILY epinephrine 0.15 mg (0.3 mL) IM Q30M PRN MDD one dose lancets (FreeStyle Lancets) Test once daily tirzepatide (Mounjaro) 2.5 mg (0.5 mL) subcut QWEEK Tobacco use date assessed: 01/15/24 Dental Screening Dental Screen Date: 09/04/23 HPI Discuss return to work forms HPI Details 48-year-old male presents to the office to discuss his medical conditions. Patient had increased mental stress and therefore was unable to work. He believes the stress was originating from work and was not able to perform the job requirements. Patient was informed that he has now exhausted all his leave and asked to return to work. Patient would like to return to work with no restrictions. The time he has been off, his mind and anxiety symptoms have improved. He believes that the break has helped him get a perspective. He would like to resume his daily duties at work. COUNT INCLUDES THE [facility] Medical History (Updated 01/15/24 @ 15:06 by Dre Oscar MD) Generalized anxiety disorder History of severe allergic reaction Obesity (BMI 30-39.9) Vitamin D deficiency Hyperlipidemia New onset type 2 diabetes mellitus Polyuria Polydipsia Encounter to establish care Surgical History History of ankle surgery Family History Other Family history of diabetes mellitus Social History Household Members: Spouse and Family Household Members Other:: , 3 daughters, 1 grandaughter, step daughter boyriend Housing: House Alcohol intake: former Patient Tobacco Use Status: Former Tobacco user e-Cigarette/Vaping Use: Never Used Second Hand Smoke Exposure: Yes Substance Use Type: Marijuana service: No Current occupational status: employed Cognitive needs: No Hearing needs: No Vision needs: Yes (glasses) Questionnaire Thrive Questionnaire Date Thrive assessed: 09/04/23 AUDIT C Alcohol Use Questionnaire (AUDIT-C) 1. How often do you have a drink containing alcohol?: Never 3. How often do you have six or more drinks on one occasion?: Never Total Score: 0 ANNIKA-7 AMB Questionnaire ANNIKA-7 Date ANNIKA - 7 assessed: 01/15/24 Source: Developed by Drs. Luis Armando White, Stefanie Leon, Toñito Bruno and colleagues, with an educational leeroy from [employer]. Physical exam (Primary Care) Vital Signs: Last Vital Signs Pulse 70 02/12/24 15:47 BP 100/68 02/12/24 15:47 Pulse Ox 98 02/12/24 15:47 Oxygen Delivery Method Room Air 02/12/24 15:47 BMI result Body Mass Index 33.1 Tobacco/Smoking Status: Tobacco use Status Tobacco use date assessed 01/15/24 02/12/24 15:56 Patient Tobacco Use Status Former Tobacco user 02/12/24 15:56 e-Cigarette/Vaping Use Never Used 02/12/24 15:56 Thrive Assessment: Date of Thrive Assessment Date Thrive assessed 09/04/23 02/12/24 15:56 Const General: cooperative and healthy appearing Nutritional Appearance: well nourished Orientation/consciousness: patient oriented x3 Limitations: no limitations HENMT Head: Yes normal to inspection Eyes General: appearance normal, both eyes and all related structures Neck Neck: Yes normal visual inspection Chest Chest palpation & inspection: normal palpation of entire chest wall Resp Effort & Inspection: normal respiratory effort Neuro General: patient oriented x3 Results AMB Hemoglobin A1c AMB Hemoglobin A1c 5.9 % Last Edit by CHARLES Sequeira on 02/12/24 16:00 Results Reviewed Results Reviewed: Laboratory Last Values Hgb A1c (Clinic) 5.9 % (4.0-6.0) 02/12/24 15:59 Assessment and Plan Assessment & Plan (1) Generalized anxiety disorder: Code(s): F41.1 - Generalized anxiety disorder Plan: I gave him a note allowing him to return to work with no restrictions. Patient has an appointment to see a therapist. Orders: Orders AMB Hemoglobin A1c 02/12/24 E11.9 - Type 2 diabetes mellitus without complications Coding Level of Care Code Est Pt Level 3 (15302) Complex EM visit Add On G2211 Diagnoses Generalized anxiety disorder F41.1
[2024-02-12 15:47] VITALS: BP 100/68; PULSE 70; O2SAT 98; BMI 33.1
== END 2024-02-12 16:33 | disposition home or self-care (01) ==
PROVIDERS: PCP Internal Medicine; Visit Provider Internal Medicine
DX: E11.9 Type 2 diabetes mellitus without complications (principal)
CPT/HCPCS: 83036; 99213

== ENCOUNTER 2024-02-26 15:44 | Outpatient (AMB) | payer BC, SELFPAY ==
[2024-02-26 15:47] VITALS: BP 114/58; PULSE 70; O2SAT 99; BMI 32.5
--- NOTE | 2024-02-26 15:47 | A.OFFPC_ITS ---
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 Allergies metformin Allergy (Intermediate, Verified 02/26/24 16:21) Diarrhea Medication List - Last Reconciled 02/26/24 by Dre Oscar MD atorvastatin 20 mg PO DAILY blood sugar diagnostic (FreeStyle Lite Strips) Test once daily blood-glucose meter (FreeStyle Lite Meter kit) Test once daily cholecalciferol (vitamin D3) 50 mcg PO DAILY epinephrine 0.15 mg (0.3 mL) IM Q30M PRN MDD one dose lancets (FreeStyle Lancets) Test once daily tirzepatide (Mounjaro) 2.5 mg (0.5 mL) subcut QWEEK Tobacco use date assessed: 01/15/24 Dental Screening Dental Screen Date: 09/04/23 HPI 3mth f/u HPI Details 48-year-old male presents to the office to discuss his chronic medical conditions. Patient has returned to work after a 2 month absence. Reporting pain in the right arm due to repetitive motion at work. Able to function and do all activities of daily living. Compliant with all medication. Able to function and do all activities of daily living. [facility] Medical History (Updated 01/15/24 @ 15:06 by Dre Oscar MD) Generalized anxiety disorder History of severe allergic reaction Obesity (BMI 30-39.9) Vitamin D deficiency Hyperlipidemia New onset type 2 diabetes mellitus Polyuria Polydipsia Encounter to establish care Surgical History History of ankle surgery Family History Other Family history of diabetes mellitus Social History Household Members: Spouse and Family Household Members Other:: , 3 daughters, 1 grandaughter, step daughter boyriend Housing: House Alcohol intake: former Patient Tobacco Use Status: Former Tobacco user e-Cigarette/Vaping Use: Never Used Second Hand Smoke Exposure: Yes Substance Use Type: Marijuana service: No Current occupational status: employed Cognitive needs: No Hearing needs: No Vision needs: Yes (glasses) Questionnaire Thrive Questionnaire Date Thrive assessed: 09/04/23 AUDIT C Alcohol Use Questionnaire (AUDIT-C) 1. How often do you have a drink containing alcohol?: Never 3. How often do you have six or more drinks on one occasion?: Never Total Score: 0 ANNIKA-7 AMB Questionnaire ANNIKA-7 Date ANNIKA - 7 assessed: 01/15/24 Source: Developed by Drs. Luis Armando White, Stefanie Leon, Toñito Bruno and colleagues, with an educational leeroy from [employer]. Physical exam (Primary Care) Vital Signs: Last Vital Signs Pulse 70 02/26/24 15:47 BP 114/58 L 02/26/24 15:47 Pulse Ox 99 02/26/24 15:47 Oxygen Delivery Method Room Air 02/26/24 15:47 BMI result Body Mass Index 32.5 Tobacco/Smoking Status: Tobacco use Status Tobacco use date assessed 01/15/24 02/26/24 15:48 Patient Tobacco Use Status Former Tobacco user 02/26/24 15:48 e-Cigarette/Vaping Use Never Used 02/26/24 15:48 Thrive Assessment: Date of Thrive Assessment Date Thrive assessed 09/04/23 02/26/24 15:48 Const General: cooperative and healthy appearing Nutritional Appearance: well nourished Orientation/consciousness: patient oriented x3 Limitations: no limitations HENMT Head: Yes normal to inspection Eyes General: appearance normal, both eyes and all related structures Neck Neck: Yes normal visual inspection Chest Chest palpation & inspection: normal palpation of entire chest wall Resp Effort & Inspection: normal respiratory effort Neuro General: patient oriented x3 Extrem Other: Right shoulder: Full range of flexion, extension, adduction and abduction. Full range of internal and external rotation Assessment and Plan Assessment & Plan (1) New onset type 2 diabetes mellitus: Code(s): E11.9 - Type 2 diabetes mellitus without complications Plan: A1c is in range. Continue current medications. (2) Sprain of right shoulder: Code(s): S43.401A - Unspecified sprain of right shoulder joint, initial encounter Plan: Reassurance. Self-limiting illness. Coding Level of Care Code Est Pt Level 3 (95753) Complex EM visit Add On G2211 Diagnoses New onset type 2 diabetes mellitus E11.9 Sprain of right shoulder S43.401L
== END 2024-02-26 16:09 | disposition home or self-care (01) ==
PROVIDERS: PCP Internal Medicine; Visit Provider Internal Medicine
DX: E11.9 Type 2 diabetes mellitus without complications (principal); S43.401A Unspecified sprain of right shoulder joint, initial encounter
CPT/HCPCS: 99213

== ENCOUNTER 2024-09-17 10:30 | Outpatient (AMB) | payer OTHER, SELFPAY ==
[2024-09-17 10:45] VITALS: BP 100/74; PULSE 66; TEMP 36.3; O2SAT 99; BMI 34.1
--- NOTE | 2024-09-17 10:45 | A.OFFPC_ITS ---
Vital Signs 09/17/24 10:45 Height 5 ft 8 in Weight 224 lb BMI 34.1 BP 100/74 Blood Pressure Location Lt brachial Position Sitting Pulse 66 Pulse Source Pulse Oximeter Temp 97.3 F Temp Source Temporal Artery Scan Pulse Oximetry (%) 99 Oxygen Delivery Method Room Air Intake Visit Reasons: annual exam Auto Glass Technician Required: No Accompanied by: Self / Same As Patient Allergies metformin Allergy (Intermediate, Verified 09/17/24 11:03) Diarrhea Medication List - Last Reconciled 09/17/24 by Dayan Johnson PA-C blood sugar diagnostic (FreeStyle Lite Strips) Test once daily blood-glucose meter (FreeStyle Lite Meter kit) Test once daily cholecalciferol (vitamin D3) 50 mcg PO DAILY epinephrine 0.15 mg (0.3 mL) IM Q30M PRN MDD one dose lancets (FreeStyle Lancets) Test once daily tirzepatide (Mounjaro) 2.5 mg (0.5 mL) subcut QWEEK Tobacco use date assessed: 09/17/24 Dental Screening Dental Screen Date: 09/17/24 Did you have a dental visit in the last 12 months?: No Did you have a dental problem in the last 6 months where you did not have access to dental care?: Yes Was dental information given to patient?: Yes [facility] Medical History (Updated 09/17/24 @ 11:24 by Dayan Johnson PA-C) Type 2 diabetes mellitus with hemoglobin A1c goal of less than 7.0% Acne Lump of right thigh Pain in right thigh Pain in left thigh Lump of left thigh Generalized anxiety disorder History of severe allergic reaction Obesity (BMI 30-39.9) Vitamin D deficiency Hyperlipidemia New onset type 2 diabetes mellitus Polyuria Polydipsia Encounter to establish care Surgical History History of ankle surgery Family History Other Family history of diabetes mellitus Social History Household Members: Spouse and Family Household Members Other:: , 3 daughters, 1 grandaughter, step daughter boyriend Housing: House Alcohol intake: former Patient Tobacco Use Status: Former Tobacco user e-Cigarette/Vaping Use: Never Used Second Hand Smoke Exposure: Yes Substance Use Type: Marijuana service: No Current occupational status: employed Cognitive needs: No Hearing needs: No Vision needs: Yes (glasses) Questionnaire PHQ-9 Over the last 2 weeks, how often have you been bothered by any of the following problems? 1. Little interest or pleasure in doing things: several days 2. Feeling down, depressed, or hopeless: not at all 3. Trouble falling or staying asleep, or sleeping too much: several days 4. Feeling tired or having little energy: several days 5. Poor appetite or overeating: several days 6. Feeling bad about yourself - or that you are a failure or have let yourself or your family down: not at all 7. Trouble concentrating on things, such as reading the newspaper or watching television: not at all 8. Moving or speaking so slowly that other people could have noticed. Or the opposite - being so fidgety or restless that you have been moving around a lot more than usual: not at all 9. Thoughts that you would be better off or of hurting yourself in some way: not at all Total score: 4 Depression Screening Interpretation: Negative Depression Screening Done: Yes 23435 - PHQ-9 Billing: Yes Source: Developed by Drs. Luis Armando White, Stefanie Leon, Toñito Bruno and colleagues, with an educational leeroy from [employer]. Thrive Questionnaire Date Thrive assessed: 09/17/24 I am a: Patient What is your living situation today?: I have a steady place to live Within the past 12 months, did the food you bought not last and you didn't have the money to get more?: Never true Within the past 12 months, did you worry whether your food would run out before you got money to buy more?: Never true Do you have trouble paying for medicines?: No Do you have trouble getting transportation to medical appointments?: No Do you have trouble paying your heating and electricity bill?: Yes Do you have trouble taking care of your child, family member or friend?: No Do you have trouble with day-to-day activities such as bathing, preparing meals, shopping, managing finances, etc.?: No Are you currently unemployed and looking for a job?: Yes Are you interested in more education?: Yes Please select the resources that you would like help with: Job search/training and Education Currently or been in a relationship where the following occur: No concerns reported THRIVE Score: 1 AUDIT C Alcohol Use Questionnaire (AUDIT-C) 1. How often do you have a drink containing alcohol?: Never 3. How often do you have six or more drinks on one occasion?: Never Total Score: 0 Score Reviewed/Action Taken: No ANNIKA-7 AMB Questionnaire ANNIKA-7 Date ANNIKA - 7 assessed: 09/17/24 Feeling nervous, anxious, or on edge: 0 = Not at all Not being able to stop or control worryin = Not at all Worrying too much about different things: 0 = Not at all Trouble relaxin = Not at all Being so restless that it is hard to sit still: 0 = Not at all Becoming easily annoyed or irritable: 0 = Not at all Feeling afraid as if something awful might happen: 0 = Not at all Total ANNIKA-7 score (0-4 normal; 5-9 mild; 10-14 moderate; 15-21 severe): 0 Source: Developed by Drs. Luis Armando White, Stefanie Leon, Toñito Bruno and colleagues, with an educational leeroy from [employer]. ANNIKA-7 Assessment Billing ANNIKA-7 Assessment Tool: ANNIKA-7 Assessment 74494 Physical exam (Primary Care) Vital Signs: Last Vital Signs Temp 97.3 F 09/17/24 10:45 Pulse 66 09/17/24 10:45 BP 100/74 09/17/24 10:45 Pulse Ox 99 09/17/24 10:45 Oxygen Delivery Method Room Air 09/17/24 10:45 Care Plan Goal for BP management: <130/80 at goal BMI result Body Mass Index 34.1 BMI Assessment/Plan discussion: High BMI High, discussed plan: lifestyle, weight reduction, dietary, physical activity and alcohol moderation Tobacco/Smoking Status: Tobacco use Status Tobacco use date assessed 09/17/24 09/17/24 10:58 Patient Tobacco Use Status Former Tobacco user 09/17/24 10:58 e-Cigarette/Vaping Use Never Used 09/17/24 10:58 PHQ-9: PHQ-9 Score PHQ-9: Total score 4 09/17/24 11:04 Depression Screening Interpretation: Negative Thrive Assessment: Date of Thrive Assessment Date Thrive assessed 09/17/24 09/17/24 10:58 Currently or been in a relationship where the following occur: No concerns reported Results AMB Hemoglobin A1c AMB Hemoglobin A1c 5.9 % Last Edit by CHARLES Mcwilliams on 09/17/24 11:18 Coding Level of Care Code Est Pt Prev Care 40-64y(85252) Diagnoses Annual physical exam Z00.00 Pain in right thigh M79.651 Lump of right thigh R22.41 Acne L70.9 Type 2 diabetes mellitus with hemoglobin A1c goal of less than 7.0% E11.9 Obesity (BMI 30-39.9) E66.9 Pure hypercholesterolemia E78.00 Hyperlipidemia type: pure hypercholesterolemia Vitamin D deficiency E55.9 Generalized anxiety disorder F41.1 Additional Codes ANNIKA-7 Assessment Billing - ANNIKA-7 Assessment Tool: ANNIKA-7 Assessment 70985 ([id number]) PHQ-9 - 14216 - PHQ-9 Billing: Yes ([id number]) Assessment & Plan Assessment & Plan (1) Annual physical exam: Code(s): Z00.00 - Encounter for general adult medical examination without abnormal findings Category: Medical (2) Pain in right thigh: Code(s): M79.651 - Pain in right thigh Category: Medical Plan: Patient with pain and lump to right medial thigh most likely lipoma. Less likel y DVT or abscess. Will order ultrasound to evaluate. Condition is chronic and stable continue to monitor. (3) Lump of right thigh: Code(s): R22.41 - Localized swelling, mass and lump, right lower limb Category: Medical Plan: Patient with pain and lump to right medial thigh most likely lipoma. Less likely DVT or abscess. Will order ultrasound to evaluate. Condition is chronic and stable continue to monitor. (4) Acne: Code(s): L70.9 - Acne, unspecified Category: Medical Plan: Patient with history of acne and ingrown hair along with dry skin. Will refer to Dermatology per patient's request. Condition is chronic and stable continue to monitor. (5) Type 2 diabetes mellitus with hemoglobin A1c goal of less than 7.0%: Code(s): E11.9 - Type 2 diabetes mellitus without complications Category: Medical Plan: Patient with type 2 diabetes A1c level today is 5.9 has been persistent since January patient currently on Mounjaro 2.5 mg subQ weekly. Condition is chronic and stable continue to monitor. (6) Obesity (BMI 30-39.9): Code(s): E66.9 - Obesity, unspecified Category: Medical Plan: Patient with obesity. Patient improving his diet and exercise regimen. Condition is chronic and stable continue to monitor. (7) Hyperlipidemia: Code(s): E78.5 - Hyperlipidemia, unspecified Category: Medical Qualifiers: Hyperlipidemia type: pure hypercholesterolemia Qualified Code(s): E 78.00 - Pure hypercholesterolemia, unspecified Plan: LDL level goal less than 70. Last LDL was in 2021 or 2022. Patient will have repeat labs. Patient currently not on any statin at this time reports adverse effects from the statin. I recommended Haddock 3 fatty acids. Condition is chronic and stable will continue to monitor (8) Vitamin D deficiency: Code(s): E55.9 - Vitamin D deficiency, unspecified Category: Medical Plan: Patient with a history of vitamin-D deficiency. Will reassess in labs today. Patient currently taking vitamin-D supplement. Will refill prescription today. Condition is chronic and stable continue to monitor. (9) Generalized anxiety disorder: Code(s): F41.1 - Generalized anxiety disorder Category: Medical Plan: stable with his anxiety without medications. Condition is chronic and stable continue to monitor. Plan Plan Patient was informed and verbally consented to the use of an ambient scribe for clinic note documentation during this visit. 1. Hyperlipidemia The patient's hyperlipidemia needs reassessment; lipid panels have been ordered. Alternatives like omega-3 fatty acids have been proposed pending results. 2. Diabetes Mellitus The management of diabetes continues with an excellent control reflected by an A1c of 5.9%. Continued healthy diet practices are recommended, and regular monitoring will be maintained. 3. Lipoma An ultrasound has been ordered to examine a suspected lipoma in the left thigh. Follow-up actions will depend on the results and any progression or symptom development. Discussion Notes I discussed with the patient his progress in managing diabetes, highlighting the significance of the stable A1c at 5.9% achieved through dietary changes. We discussed the discontinuation of atorvastatin due to side effects and the need to reassess his lipid levels with a new panel test, talking through possible alternatives should hyperlipidemia still be a concern. I explained the potential benign nature of the thigh lump, likely a lipoma, and the rationale for conducting an ultrasound to exclude any vascular implications, ensuring informed consent for the diagnostics involved. We reviewed follow-up intervals appropriate for blood sugar, cholesterol management, and potential further evaluation of the thigh mass, should the ultrasound warrant more detailed investigation. Orders: Orders Complete Blood Count Auto Diff Today Z00.00 - Encounter for general adult medical examination without abnormal findings Comprehensive Dewar. Panel Fast Today Z00.00 - Encounter for general adult medical examination without abnormal findings Erythrocyte Sedimentation Rate Today Z.00 - Encounter for general adult medical examination without abnormal findings Lipid Panel Today Z00.00 - Encounter for general adult medical examination without abnormal findings TSH reflex Free T4 Today Z00.00 - Encounter for general adult medical examination without abnormal findings Vitamin B12 and Folate Today Z.00 - Encounter for general adult medical examination without abnormal findings Parathyroid Hormone Intact Today Z00.00 - Encounter for general adult medical examination without abnormal findings Microalbumin, Random (w Creat) Today E11.9 - Type 2 diabetes mellitus without complications US extremity nonvascular vargas Today M79.651 - Pain in right thigh, R22.41 - Localized swelling, mass and lump, right lower limb PSA,Total (Free>4and<10) Today Z00.00 - Encounter for general adult medical examination without abnormal findings AMB Hemoglobin A1c Today E11.9 - Type 2 diabetes mellitus without complications C Reactive Protein Today Z00.00 - Encounter for general adult medical examination without abnormal findings Liver Panel Today Z00.00 - Encounter for general adult medical examination without abnormal findings Magnesium Today Z00.00 - Encounter for general adult medical examination without abnormal findings Vitamin B1 Today Z00.00 - Encounter for general adult medical examination without abnormal findings Vitamin D 25-OH Total Today Z00.00 - Encounter for general adult medical exami nation without abnormal findings Zinc Today Z00.00 - Encounter for general adult medical examination without abnormal findings Testosterone, Total Today Z00.00 - Encounter for general adult medical examination without abnormal findings US venous duplex LE RT Today M79.651 - Pain in right thigh, R22.41 - Localized swelling, mass and lump, right lower limb Referrals Dermatology Referral L70.9 - Acne, unspecified Medications: New cholecalciferol (vitamin D3) 50 mcg PO DAILY 90 tabs 1RF Patient Instructions: Patient Instructions - Continue current diabetes management with a focus on maintaining dietary changes and monitoring sugar intake. - Follow up with ordered blood work to reassess cholesterol levels; start fish oil supplements if recommended after results. - Attend the ultrasound appointment for further evaluation of the thigh lump. - Adhere to routine eye and dental exams for comprehensive health monitoring. - Seek medical attention if experiencing symptoms like unusual swelling, persistent thigh changes, or any new concerning symptoms. - Return in six months for routine follow-up or sooner if there are any changes in symptoms or test results are concerning. Scribe Plan - Not visible on output: History of Present Illness The patient is a 49-year-old male presenting for an annual physical examination, with a significant medical history of diabetes mellitus, for which he has made effective lifestyle changes resulting in stable blood glucose control (A1c of 5.9%). He has ceased high-sugar beverages and increased seltzer water and healthy protein intake. Previous hyperlipidemia was noted, with a past prescription for atorvastatin, but the patient has discontinued it due to gastrointestinal discomfort. A lipid panel was ordered to reassess current cholesterol levels. During the visit, the patient mentioned the occasional presence of a lump in his left thigh, likely a lipoma. There are no symptoms of pain or swelling linked to it. An ultrasound of the thigh was planned to exclude vascular issues. Social History - Family: The patient mentioned he has four children and three grandchildren. - Nutritional Intake: Reduced intake of sugary beverages, increased intake of seltzer water, focus on consuming nuts and proteins like peanuts, pistachios, tuna, and yogurt. - Medication Attitude: Shows a general preference for non-pharmacological management, reluctant to take medications like atorvastatin due to side effects. - Residence: Previously lived in [place]. Review of Systems - General: Reports stable weight, recent weight management efforts noted. - Musculoskeletal: Denies leg swelling, reports occasional small lump on left thigh. - Cardiovascular: Denies leg pain or swelling, no reported chest pain or shortness of breath during activities or when lying down. - Gastrointestinal: Denies black or bloody stools, moves bowels regularly. - Genitourinary: Urination is normal; previously on metformin which caused discomfort. Physical Exam Appearance: Alert. Oriented X3. No acute distress. Head: Normal external exam. Normocephalic. Atraumatic. Eyes: Pupils are equal, round, and reactive to light. Extraocular movements intact. Conjunctiva and sclera normal. Eyelids normal. Ears: External auditory canal normal. Tympanic membranes normal. Throat: Pharynx normal. Uvula midline. Moist mucous membranes. Neck: Normal inspection. Neck supple. Full range of motion. No adenopathy. Thyroid Normal. No meningeal signs. No neck mass noted. Cardiovascular: Normal heart rate and rhythm. Heart sound normal. No murmurs noted. Pulses normal throughout. Respiratory: No respiratory distress. Painless inspiration. Breath sounds normal. No wheezes/rales/rhonchi noted. Chest nontender. No accessory muscle usage noted or decreased air movement noted. Abdomen: Soft and nontender. Bowel sounds normal in all 4 quadrants. No distention noted. No organomegaly noted. No visible injury noted. Back: No costovertebral angle tenderness. Full range of motion noted. Skin: Skin warm and dry. Normal skin color. Normal skin turgor. No rashes/lesions/lacerations noted. Extremities: No lower extremity edema. Extremities exhibit normal range of motion. Extremities nontender. Noted a small lump in the right leg area, likely a lipoma, to be further evaluated with an ultrasound. Neuro: Oriented X 3. No motor deficit. No sensory deficit. Reflexes normal. Results - Labs: Hemoglobin A1c is 5.9%, reflecting stable diabetes control. - Tests: Scheduled ultrasound for thigh lump.
--- OUTSIDE RECORDS SUMMARY | 2024-09-17 12:07 | XMS_ITS | Clinical Summary ---
Author Organization [employer] Address [address] [place] [address] Care Team Providers Care Operator Specialist Communications Name Role Phone Unavailable Primary Care Provider Unavailabl e Encounters Date Type Department Care Team Description 09/17/2024 Outside Procedure [facility] OPTOMETRY [address] [place] [address] Alfonso Solanon, OD Presbyopia (Primary Dx) 09/10/2024 3:30 PM EDT Office Visit [facility] OPTOMETRY [address] [place] [address] Ashlie Solano, OD Myopia of both eyes (Primary Dx) from Last 3 Months Social History Tobacco Use Types Packs/Day Years Used Date Smoking Tobacco: Never Assessed Sex and Gender Information Value Date Recorded Sex Assigned at Male 09/10/2024 4:12 PM EDT Legal Sex Male 2:50 PM EST Gender Identity Male 09/10/2024 4:12 PM EDT Sexual Orientation Straight 09/10/2024 4: 12 PM EDT Plan of Treatment Health Maintenance Due Date Last Done Comments CT Colonography 1975 Colonoscopy 1975 Colorectal Cancer Screening 1975 Depression Screening 1975 FIT DNA/Cologuard 1975 FIT 1975 FOBT 1975 HIV Screening 1975 Lipid Panel 1975 SDOH Screening 1975 Sigmoidoscopy 1975 Alcohol/Substance Use Screening 1987 Tobacco Screening 1987 Family Planning (PISQ) 1990 Hepatitis C Screening 1993 Hepatitis B Vaccines (1 of 3 - 19+ 3-dose series) 1994 DTaP/Tdap/Td Vaccines (2 - T d or Tdap) 10/03/2022 10/03/2012 COVID-19 Vaccine (2023-2 5 season) 2024 Influenza Vaccine (#1) 2024 Zoster Vaccines (1 of 2) 2025 RSV Patients and Pa tients Aged 60 years or older (1 - 1-dose 75+ series) 2050 Pneumococcal Vaccine: Pediat rics (0 to 5 Years) and At-Risk Patients (6 to 49) Years) Aged Out 08/31/2022 No longer elig ible based on patient's age to complete this topic HIB Vaccines Aged Out No longer eligi ble based on patient's age to complete this topic HPV Vaccines Aged Out No longer eligi ble based on patient's age to complete this topic Hepatitis A Vaccines Aged Out No long er eligible based on patient's age to complete this topic IPV Vaccines Aged Out No longer eligi ble based on patient's age to complete this topic Meningococcal Vaccine Aged Out No shaheen emma eligible based on patient's age to complete this topic RSV under 20 months Aged Out No longe r eligible based on patient's age to complete this topic Rotavirus Vaccines Aged Out No longer eligible based on patient's age to complete this topic Insurance [facility] STAND[facility]
--- OUTSIDE RECORDS SUMMARY | 2024-09-17 12:07 | XMS_ITS | Encounter Summary ---
Author Organization [facility] Address [address] [place] [address] Care Team Providers Care Manager Business Intelligence Name Role Phone Unavailable Primary Care Provider Unavailabl e Encounter Details Date Type Department Care Team (Late st Contact Info) Description 09/10/2024 3:30 PM EDT Office Visit [facility] OPTOMETRY [address] [place] [address] Ashlie Solano, KRISTI [address] [place] [address] Myopia of both eyes (Primary Dx) Social History Tobacco Use Types Packs/Day Years Used Date Smoking Tobacco: Never Assessed Sex and Gender Information Value Date Recorded Sex Assigned at Male 09/10/2024 4:12 PM EDT Legal Sex Male 2:50 PM EST Gender Identity Male 09/10/2024 4:12 PM EDT Sexual Orientation Straight 09/10/2024 4: 12 PM EDT documented as of this encounter Progress Notes * Ashlie Solano OD - 09/10/2024 3:30 PM EDT MH glasses were dispensed, 1 of 2. documented in this encounter Plan of Treatment Not on file documented as of this encounter Visit Diagnoses Diagnosis Myopia of both eyes- Primary documented in this encounter
--- OUTSIDE RECORDS SUMMARY | 2024-09-17 12:07 | XMS_ITS | Encounter Summary ---
Author Organization [employer] Address [address] [place] [address] Care Team Providers Care Category Analyst Name Role Phone Unavailable Primary Care Provider Unavailabl e Encounter Details Date Type Department Care Team (Latest Contact Info) Description 09/17/2024 Outside Procedure [facility] OPTOMETRY [address] [place] [address] Ashlie Solano, KRISTI [address] [place], [place] [id number] Presbyopia (Primary Dx) Social History Tobacco Use Types Packs/Day Years Used Date Smoking Tobacco: Never Assessed Sex and Gender Information Value Date Recorded Sex Assigned at Male 09/10/2024 4:12 PM EDT Legal Sex Male 2:50 PM EST Gender Identity Male 09/10/2024 4:12 PM EDT Sexual Orientation Straight 09/10/2024 4: 12 PM EDT documented as of this encounter Progress Notes * Ashlie Solano OD - 09/17/2024 9:58 AM EDT MH glasses were dispensed, 2 of 2. documented in this encounter Plan of Treatment Not on file documented as of this encounter Visit Diagnoses Diagnosis Presbyopia- Primary documented in this encounter
== END 2024-09-17 11:27 | disposition home or self-care (01) ==
LOC: HO.HMCH 10:31
PROVIDERS: PCP Internal Medicine; Visit Provider Physician Assistant Medical
DX: E11.9 Type 2 diabetes mellitus without complications (principal)

== ENCOUNTER 2024-09-17 10:30 | Outpatient (REF) | payer OTHER, SELFPAY ==
[2024-09-17 12:03] LABS: MANUAL DIFF FLAG NO
[2024-09-17 13:07] LABS: Basophils Percent Auto 0.7 % (0-2); Eosinophils Absolute Auto 0.2 X10*3/uL (0.0-0.4); Eosinophils Percent Auto 4.6 % (0-4); Hematocrit 46.1 % (42.0-52.0); Hemoglobin 15.7 g/dl (14.0-18.0); Imm Gran Abs Auto 0.01 X10*3/uL (0.00-0.03); Imm Gran Pct Auto 0.2 % (0.0-0.4); Lymphocytes Absolute Auto 1.2 X10*3/uL (1.2-4.9); Lymphocytes Percent Auto 28.8 % (20-40); Mean Corpuscular HGB Conc 34.1 g/dl (31.0-36.0); Mean Corpuscular Hemoglobin 29.6 pg (27.0-33.0); Mean Platelet Volume 10.4 fL (9.4-12.4); Monocytes Absolute Auto 0.4 X10*3/uL (0.1-1.2); Monocytes Percent Auto 8.4 % (2-11); Neutrophils Absolute Auto 2.4 x10*3/uL (2.0-8.3); Neutrophils Percent Auto 57.3 % (45-73); Platelet Count 160 X10*3/uL (160-400); Red Cell Distribution Width 12.9 % (11.0-16.0); White Blood Count 4.2 X10*3/uL (4.8-10.8)
[2024-09-17 13:39] LABS: Parathyroid Hormone Intact 81.7 pg/mL (8.7-77.1)
[2024-09-17 13:52] LABS: Appearance Urine Clear; Color Urine Yellow; Glucose Urine UA Negative (Negative); Leukocyte Esterase Urine Negative (Negative); Nitrite Urine Negative (Negative); Specific Gravity - Urine 1.015 (1.005-1.025); Urine Blood Negative (Negative); Urine Ketones Negative (Negative); Urine Protein Negative (Neg-Trace)
[2024-09-17 13:55] LABS: PSA,Total (Free>4and<10) 0.48 ng/mL (0.00-4.00)
[2024-09-17 14:08] LABS: Alanine Aminotransferase 22 U/L (0-40); Albumin Level 4.3 g/dL (3.5-5.0); Alkaline Phosphatase 62 U/L (39-117); Anion Gap 9 (12-20); Aspartate Amino Transferase 23 U/L (5-37); Bilirubin Direct 0.2 mg/dL (0.0-0.5); Bilirubin Total 0.6 mg/dL (0.0-1.0); Blood Urea Nitrogen 12 mg/dL (9-16); C Reactive Protein < 0.10 mg/dL (< or = 0.50); Carbon Dioxide 28 mmol/L (22-29); Chloride 108 mmol/L (96-108); Cholesterol 183 mg/dL (<200); Estimated Glomerular Filt Rate > 60; Glucose Fasting 101 mg/dL (60-99); HDL Cholesterol 39 mg/dL (>40); LDL Cholesterol Calculated 122 mg/dL (<100); Potassium 4.3 mmol/L (3.3-5.1); Sodium 141 mmol/L (135-145); Total Protein 7.6 g/dL (6.5-8.0); Triglycerides 113 mg/dL (<150)
[2024-09-17 14:10] LABS: TSH reflex Free T4 0.63 uIU/mL (0.32-4.0); Vitamin D 25-OH Total 26.6 ng/mL (>30)
[2024-09-17 14:22] LABS: Erythrocyte Sedimentation Rate 5 MM/HR (0-15)
[2024-09-17 14:48] LABS: Creatinine Urine 113.24 mg/dL; Microalbum/Creatinine Ratio Ur 7.9 ug/mg cr (<30)
[2024-09-17 15:40] LABS: Folate 13.9 ng/mL (> or = 4.0); Vitamin B12 317 pg/mL (200-900)
[2024-09-20 23:54] LABS: Zinc 72 mcg/dL (60-130)
[2024-09-22 13:09] LABS: Testosterone, Total 691 ng/dL (250-1100)
[2024-09-27 14:52] LABS: Vitamin B1 14 nmol/L (8-30)
== END 2024-09-17 10:31 | disposition home or self-care (01) ==
LOC: HO.LAB 10:30
PROVIDERS: PCP Internal Medicine; Visit Provider Physician Assistant Medical
DX: Z00.00 Encounter for general adult medical examination without abnormal findings (principal); E11.9 Type 2 diabetes mellitus without complications; M79.651 Pain in right thigh; R22.41 Localized swelling, mass and lump, right lower limb; L70.9 Acne, unspecified; E66.9 Obesity, unspecified; E78.00 Pure hypercholesterolemia, unspecified; E55.9 Vitamin D deficiency, unspecified; F41.1 Generalized anxiety disorder
CPT/HCPCS: 36415; 80053; 80061; 80076; 81003; 82043; 82248; 82306; 82570; 82607; 82746; 83036; 83735; 83970; 84153; 84403; 84425; 84443; 84630; 85025; 85652; 86140; 96127; 99396

== ENCOUNTER 2024-10-12 14:02 | Outpatient (REF) | payer OTHER, SELFPAY ==
--- NOTE | ~2024-10-12 | US_ITS ---
EXAMINATION: Ultrasound nonvascular. CLINICAL INDICATION: Right mid medial thigh palpable lump. COMPARISON: None. TECHNIQUE: Limited ultrasound imaging through the right thigh was performed. FINDINGS: Ultrasound imaging through the right mid medial thigh reveals no visible lump, mass or fluid collection. Incidentally noted is a superficial varicose vein, compressible. US/US extremity nonvascular vargas IMPRESSION: Unremarkable ultrasound no visible mass, lump or fluid collection. Electronically signed by: Hussein Nicholson MD 10/13/2024 04:25 PM EDT
--- OUTSIDE RECORDS SUMMARY | 2024-10-12 16:27 | XMS_ITS | Clinical Summary ---
Author Organization [employer] Address [address] [facility] [place] [address] Care Team Providers Care Computer Systems Hardware Analyst Name Role Phone Unavailable Primary Care Provider Unavailabl e Encounters Date Type Department Care Team Description 09/17/2024 Outside Procedure [facility] OPTOMETRY [address] [place] [address] Alfonso Solanon, OD Presbyopia (Primary Dx) 09/10/2024 3:30 PM EDT Office Visit [facility] OPTOMETRY [address] [place] [address] Ashlie Solano, OD Myopia of both eyes [...] patient's age to complete this topic Insurance [facility] STANDARD
== END 2024-10-12 14:03 | disposition home or self-care (01) ==
LOC: HO.US 14:02
PROVIDERS: PCP Internal Medicine; Visit Provider Physician Assistant Medical
DX: M79.651 Pain in right thigh (principal); R22.41 Localized swelling, mass and lump, right lower limb
CPT/HCPCS: 76882

== ENCOUNTER → 2024-10-12 14:10 | Outpatient (BNV) | payer OTHER, SELFPAY | PROVIDERS: PCP Internal Medicine; Visit Provider Radiology Diagnostic Radiology | DX: R22.41 Localized swelling, mass and lump, right lower limb (principal) | CPT/HCPCS: 76882 ==

== ENCOUNTER 2024-11-02 10:18 | Outpatient (AMB) | payer OTHER, SELFPAY ==
[2024-11-02 10:27] VITALS: BP 108/68; PULSE 56; O2SAT 96; BMI 33.7
--- NOTE | 2024-11-02 10:27 | A.OFFVIS_ITS ---
Vital Signs 11/02/24 10:27 Height 5 ft 8 in Weight 221 lb 9.033 oz BMI 33.7 BP 108/68 Blood Pressure Location Lt brachial Position Sitting Pulse 56 Pulse Source Pulse Oximeter Pulse Oximetry (%) 96 Oxygen Delivery Method Room Air Intake Visit Reasons: Other specified abnormal findings of blood chem Intake Note: New patient present today for Other specified abnormal findings of blood chemistry. Fur Blower Required: No Accompanied by: Self / Same As Patient Allergies metformin Allergy (Intermediate, Verified 11/02/24 10:31) Diarrhea Medication List - Last Reconciled 11/02/24 by Alanna Calderón MD atorvastatin 10 mg PO BEDTIME blood sugar diagnostic (FreeStyle Lite Strips) Test once daily blood-glucose meter (FreeStyle Lite Meter kit) Test once daily cholecalciferol (vitamin D3) 50 mcg PO DAILY cholecalciferol (vitamin D3) 25 mcg PO DAILY epinephrine 0.15 mg (0.3 mL) IM Q30M PRN MDD one dose lancets (FreeStyle Lancets) Test once daily tirzepatide (Mounjaro) 2.5 mg (0.5 mL) subcut QWEEK HPI Comments Details: 49-year-old male coming in today for initial evaluation of elevated PTH level. Chart review shows patient's calcium level has been anywhere from 9.2-9.7 with albumin around 4.2-4.4, corrected calcium would be somewhere between 9-9.5. Most recent labs from August 2024 showed calcium of 9, albumin of 4.3, corrected calcium would be at 0.7, normal kidney function, vitamin-D level was low at 26.6 and PTH was 81.7. Vitamin D 2000 units daily just started in August 2024, before that was off vitamin D for 3-4 months and before that was on it for about a year or so Milk: 2-3 times a week, cheese daily, 2 yogurts a week No calcium supplements Kidney stones : none Fractures : right ankle 2013, sliding into third base playing soft ball , foot caught in the ground at an ankle No family history of kidney stones or calcium problems Intermittent constipation. No polyuria . no abd pain. PMH Diabetes mellitus type 2 HLD PMHs: ankle surgery Social history [place] Smokes weed occasionally [facility] Alcohol use : none sine 1994 Physical exam General: sitting comfortably in no acute distress HEENT: normocephalic/atraumatic, Neck: supple Cardiac: normal heart sounds Pulm: normal breath sounds B/L, no added breath sounds Abd: not distended, no tenderness Extremities: no edema, no signs of myxedema Laboratory Tests 09/16/21 05/19/22 10/12/23 09:44 10:28 08:18 Creatinine Estimated GFR Calcium 9.7 9.2 9.5 Magnesium Albumin 4.4 4.2 4.4 25-OH Vitamin D Total 7 L 19.9 TSH PTH Intact 09/17/24 12:01 Creatinine 0.74 Estimated GFR > 60 Calcium 9.0 Magnesium 2.0 Albumin 4.3 25-OH Vitamin D Total 26.6 L TSH 0.63 PTH Intact 81.7 H [facility] Medical History (Updated 09/17/24 @ 15:47 by Dayan Johnson PA-C) Elevated parathyroid hormone Type 2 diabetes mellitus with hemoglobin A1c goal of less than 7.0% Acne Lump of right thigh Pain in right thigh Pain in left thigh Lump of left thigh Generalized anxiety disorder History of severe allergic reaction Obesity (BMI 30-39.9) Vitamin D deficiency Hyperlipidemia New onset type 2 diabetes mellitus Polyuria Polydipsia Encounter to establish care Surgical History History of ankle surgery Family History Other Family history of diabetes mellitus Social History Household Members: Spouse and Family Household Members Other:: , 3 daughters, 1 grandaughter, step daughter boyriend Housing: House Alcohol intake: former Patient Tobacco Use Status: Former Tobacco user e-Cigarette/Vaping Use: Never Used Second Hand Smoke Exposure: Yes Substance Use Type: Marijuana service: No Current occupational status: employed Cognitive needs: No Hearing needs: No Vision needs: Yes (glasses) Physical Exam Vital Signs: Last Vital Signs Pulse 56 11/02/24 10:27 BP 108/68 11/02/24 10:27 Pulse Ox 96 11/02/24 10:27 Oxygen Delivery Method Room Air 11/02/24 10:27 BMI result Body Mass Index 33.7 Assessment & Plan Assessment & Plan (1) Elevated parathyroid hormone: Code(s): R79.89 - Other specified abnormal findings of blood chemistry Category: Medical Plan: 49-year-old male coming in today for elevated PTH level.Chart review shows patient's calcium level has been anywhere from 9.2-9.7 with albumin around 4.2-4 .4, corrected calcium would be somewhere between 9-9.5. Most recent labs from August 2024 showed calcium of 9, albumin of 4.3, corrected calcium would be at 0.7, normal kidney function, vitamin-D level was low at 26.6 and PTH was 81.7. At this point it is unclear why the PTH level was checked in this patient given he has no history of hypercalcemia, no history of kidney stones, no history of urine calcium abnormalities, no history of fragility fracture or osteoporosis. PTH level can is likely elevated in the setting of vitamin-D deficiency resulting in secondary hyperparathyroidism. He also does not have the greatest intake of calcium in his food, I have asked him to bump up his calcium intake in his food and continue vitamin-D 2000 units daily which she was recently started on by his PCP. We will repeat Vitamin-D levels in 3 once along with a PTH level as well as calcium levels to see if PTH normalizes once vitamin-D levels are better. Recently have also noticed some elevated PTH levels at our lab which were normal with outside lab assay, we will repeat lab at another lab. Plan: -continue vitamin-D 2000 units daily -incorporate 2-3 she servings of calcium rich foods daily -repeat labs in 3 months ordered at [facility] prior to follow up in 3 months Plan I spent 45 minutes in reviewing the record, seeing the patient and documenting in the medical record. Orders: Orders Albumin Level 10 Weeks - Other specified abnormal findings of blood chemistry Calcium 10 Weeks - Other specified abnormal findings of blood chemistry Phosphorus 10 Weeks - Other specified abnormal findings of blood chemistry Creatinine 10 Weeks - Other specified abnormal findings of blood chemistry Calcium, Ionized 10 Weeks - Other specified abnormal findings of blood chemistry Parathyroid Hormone Intact 10 Weeks - Other specified abnormal findings of blood chemistry Vitamin D 25-OH Total 10 Weeks - Other specified abnormal findings of blood chemistry Medications: Discontinued cholecalciferol (vitamin D3) Discontinued Reason: Duplicate 25 mcg PO DAILY 90 caps 1RF Patient Instructions: Do blood work 2 weeks prior to your next follow up in 3 months at [facility] [address] [place] [address]. Continue vitamin D 2000 units daily Take 2-3 servings of calcium rich foods daily such as milk, yogurt, cheese Coding Level of Care Code New Pt Level 4 (46091) Diagnoses Elevated parathyroid hormone R79.89 Time Spent (min) 45
--- OUTSIDE RECORDS SUMMARY | 2024-11-02 11:36 | XMS_ITS | Clinical Summary ---
Author Organization [facility] Address [address] [place] [address] Care Team Providers Care Psychiatric Social Worker Supervisor Name Role Phone Unavailable Primary Care Provider Unavailabl e Encounters Date Type Department Care Team Description 09/17/2024 Outside Procedure [facility] [address] [place] [address] Alfonso Solanon, OD Presbyopia (Primary Dx) 09/10/2024 3:30 PM EDT Office Visit [facility] [address] [place] [address] Ashlie Solano, OD Myopia of both eyes [...] patient's age to complete this topic Insurance [facility]
== END 2024-11-02 11:03 | disposition home or self-care (01) ==
LOC: HO.ENCR 10:18
PROVIDERS: PCP Internal Medicine; Visit Provider Student in an Organized Health Care Education/Training Program
DX: R79.89 Other specified abnormal findings of blood chemistry (principal)
CPT/HCPCS: 99204

== ENCOUNTER → 2024-11-02 10:18 | Outpatient (BNVA) | payer OTHER, SELFPAY | PROVIDERS: PCP Internal Medicine; Visit Provider Student in an Organized Health Care Education/Training Program | DX: R79.89 Other specified abnormal findings of blood chemistry (principal) | CPT/HCPCS: 99202 ==

== ENCOUNTER 2025-01-09 07:56 | Outpatient (REF) | payer OTHER, SELFPAY ==
[2025-01-09 09:10] LABS: Albumin Level 4.4 g/dL (3.5-5.0); Calcium 8.9 mg/dL (8.4-10.2); Estimated Glomerular Filt Rate > 60
[2025-01-09 10:13] LABS: Parathyroid Hormone Intact 71.7 pg/mL (8.7-77.1)
[2025-01-11 23:24] LABS: Calcium, Ionized 4.9 mg/dL (4.7-5.5)
== END 2025-01-09 07:57 | disposition home or self-care (01) ==
LOC: HO.LAB 07:56
PROVIDERS: PCP Internal Medicine; Visit Provider Student in an Organized Health Care Education/Training Program
DX: R79.89 Other specified abnormal findings of blood chemistry (principal)
CPT/HCPCS: 36415; 82040; 82306; 82310; 82330; 82565; 83970; 84100